=== PATIENT | female | born 2000 | race Caucasian/White ===

== ENCOUNTER → 2022-05-22 | Outpatient (CLI) | payer SELFPAY | END | disposition home or self-care (01) | LOC: LABWHC1 10:31 | PROVIDERS: ATTEND Obstetrics & Gynecology | DX: Z36.9 Encounter for antenatal screening, unspecified (principal) | CPT/HCPCS: 36415; 82950 ==

== ENCOUNTER 2022-07-07 09:33 | Inpatient (IN) | payer BC ==
[2022-07-07] MEDS ORDERED: LACTATED RINGERS 1,000 ML IV ONE (10:45)
[2022-07-07 10:49] LABS: Glucose,Whole Blood 84 mg/dL (70-110)
[2022-07-07 10:53] LABS: Appearance,Urine Cloudy (Clear); Bacteria,Urine Rare /hpf; Bilirubin,Urine Negative (Negative); Blood,Urine Negative (Negative); Color,Urine Yellow; Glucose,Urine (UA) Negative (Negative); Ketones,Urine 1+ (Negative); Leukocyte Esterase,Urine Small (Negative); Mucus,Urine Many /hpf; Nitrite,Urine Negative (Negative); PH, Urine 6.5 (5.0-8.0); Protein,Urine 2+ (Negative); Specific Gravity,Urine 1.022 (1.001-1.035); Squamous Epithelial Cell,Urine 20 /hpf (0-4); Urobilinogen,Urine <2.0 mg/dL (<2.0); WBC,Urine 7 /hpf (0-5)
[2022-07-07 10:56] LABS: Creatinine,Urine Random 164.9 mg/dL
[2022-07-07 11:03] LABS: Basophils % (A) 0 %; Eosinophils % (A) 0 %; HGB 12.5 gm/dL (11.4-16.0); Lymphocytes # (A) 1.3 k/uL (1.0-4.8); Lymphocytes % (A) 12 %; MCH 30.2 pg (25.0-35.0); MCHC 33.7 g/dL (31.0-37.0); MCV 89.7 fL (80.0-100.0); Mean Platelet Volume 8.7; Monocytes # (A) 0.4 k/uL (0-1.0); Monocytes % (A) 4 %; Neutrophils # (A) 8.9 k/uL (1.3-7.7); Neutrophils % (A) 82 %; Platelet Count 226 k/uL (150-450); RBC 4.12 m/uL (3.80-5.40); RDW 13.2 % (11.5-15.5); WBC 10.8 k/uL (3.8-10.6)
[2022-07-07 11:15] LABS: ALT 13 U/L (4-34); AST 16 U/L (14-36); African American GFR (CKD) >90 (>60 ml/min/1.73 sqM); Albumin 3.3 g/dL (3.5-5.0); Alkaline Phosphatase 164 U/L (38-126); Anion Gap 6 mmol/L; Blood Urea Nitrogen 7 mg/dL (7-17); Calcium 8.4 mg/dL (8.4-10.2); Carbon Dioxide 22 mmol/L (22-30); Chloride 104 mmol/L (98-107); Glucose 79 mg/dL (74-99); LDH 393 U/L (313-618); Non-African American GFR(CKD) >90 (>60 ml/min/1.73 sqM); Potassium 4.4 mmol/L (3.5-5.1); Sodium 132 mmol/L (137-145); Total Bilirubin 0.3 mg/dL (0.2-1.3); Total Protein 6.2 g/dL (6.3-8.2); Uric Acid 4.9 mg/dL (3.7-7.4)
[2022-07-07 11:18] LABS: Amphetamine Screen,Urine Not Detected (NotDetected); Barbiturate Screen,Urine Not Detected (NotDetected); Benzodiazepines Screen,Urine Not Detected (NotDetected); Cocaine Screen,Urine Not Detected (NotDetected); Methadone Screen, Urine Not Detected (NotDetected); Opiate Screen,Urine Not Detected (NotDetected); Oxycodone Screen, Urine Not Detected (NotDetected); Phencyclidine Screen,Urine Not Detected (NotDetected); Tricyclic Antidepressant,Urine Not Detected (NotDetected); Urn Cannabinoid Scrn Detected (NotDetected)
[2022-07-07] MEDS ORDERED: MAGNESIUM SULFATE-WATER PMX 4 GM in WATER FOR INJECTION 1 100ML.BAG IVPB ONE (13:01)
[2022-07-07] MEDS ORDERED: hydrALAZINE HCL 20 MG/ML 1 ML VIAL IVP PRN (13:01)
[2022-07-07] MEDS ORDERED: CALCIUM GLUCONATE 1 GM/10 ML VIAL IV PRN (13:01)
[2022-07-07] MEDS ORDERED: LABETALOL 5 MG/ML VIAL MDV IVP PRN ×3 (13:01)
[2022-07-07] MEDS ORDERED: TERBUTALINE 1 MG/ML VIAL SQ PRN (13:03)
[2022-07-07] MEDS ORDERED: OXYTOCIN 10 UNIT/ML 1 ML VIAL IM PRN (13:03)
[2022-07-07] MEDS ORDERED: TRANEXAMIC ACID IN NACL,ISO-OS 1,000 MG in EMPTY BAG 1 BAG IV PRN (13:03)
[2022-07-07] MEDS ORDERED: LIDOCAINE 0.5% (PF) 5 MG/ML (50 ML SDV) SQ PRN (13:03)
[2022-07-07] MEDS ORDERED: METHYLERGONOVINE 0.2 MG/ML 1 ML AMP IM PRN (13:03)
[2022-07-07] MEDS ORDERED: CARBOPROST TROMETHAMINE 250 MCG/ML 1 ML AMP IM PRN (13:03)
[2022-07-07] MEDS ORDERED: miSOPROStoL 200 MCG TAB PO PRN (13:03)
[2022-07-07] MEDS: LACTATED RINGERS 1,000 ML IV SCH ×2 (13:15→20:31)
[2022-07-07] MEDS ORDERED: OXYTOCIN 30 UNITS/500 ML NS 30 UNIT in SALINE 1 500ML.BAG IV SCH (13:15)
[2022-07-07] MEDS ORDERED: DINOPROSTONE 10 MG INSERT.ER VAGINAL ONE (13:30)
--- NOTE | 2022-07-07 13:30 | P.HPOB ---
History of Present Illness H&P Date: 07/07/22 Chief Complaint: Possible maternal seizure This is a 22-year-old 1 para 0 with an estimated due date of 07/08/2022 based on LMP consistent with first trimester ultrasound. He him pronouns, preferred name Sammy, presents to labor and delivery after his partner noted a possible seizure. His partner states the patient "tensed up" and convulsive at the edge of the bed for approximately 45 seconds. This again occurred for an additional 30 seconds several minutes later. The patient then was "out of it" but was able to ambulate without difficulty to the car and they came to the hospital. The patient has a history of a seizure in the first trimester of that was thought to be due to severe dehydration and electrolyte abnormalities. The patient has not had any further seizure activity was, elevated blood pressures or signs or symptoms of preeclampsia throughout the course. Upon initial presentation the patient was noted to be possibly mildly post icteric with a blood pressure of 140s over 80s. Subsequent blood pressure 1 teens over this. Shows 2+ protein however protein to creatinine ratio is calculated low at 0.03. The remainder of labs are normal including glucose. Specifically normal platelets, AST, ALT, uric acid. Patient is admitted to labor and delivery for further evaluation and observation. With transferred to the labor room he became nauseated and diaphoretic. Blood pressure was 177/90. Therefore magnesium sulfate seizure prophylaxis was initiated. Repeat blood pressures 144/80 and 139/79. The patient appears alert and oriented. Able to answer questions and provide history. He reports mild headache this morning in the car on the way to the hospital however denies any significant history of headaches, visual changes, abdominal pain, vaginal bleeding or contractions. He has felt good movement. The patient does admit to marijuana use last night however no other illicit drug use or known exposures. laboratory data: Blood type AB+, rubella immune, VDRL nonreactive, hepatitis B surface antigen negative, HIV negative, gonorrhea and clinic cultures negative, group B strep negative. Review of Systems All systems: negative Past Medical History History of Any Multi-Drug Resistant Organisms: None Reported Smoking Status: Vaper Medications and Allergies Home Medications Medication Instructions Recorded Confirmed Type Vit No.179/Iron/Folic 1 each PO DAILY 07/07/22 07/07/22 History [ Tablet] Allergies Allergy/AdvReac Type Severity Reaction Status Date / Time nickel Allergy Rash/Hives Verified 07/07/22 09:56 Exam Intake and Output 07/06/22 07/07/22 07/07/22 22:59 06:59 14:59 Other: Weight 94.347 kg This is an alert and oriented individual who is visibly gravid. HEENT exam is unremarkable. Breathing is unlabored and the heart is of regular rate and rhythm. The abdomen is gravid, soft with no right upper quadrant pain and nontender. Negative for bilateral lower extremity edema. Deep tendon reflexes 1-2+ with no clonus. On pelvic examination the cervix is 1 cm dilated 30% effaced and vertex in the -3 station. heart tones are category 2 by external monitoring. No repetitive decelerations however minimal variability noted. No contractions. Results Result Diagrams: 07/07/22 10:45 07/07/22 10:45 Abnormal Lab Results - Last 24 Hours (Table) 07/07/22 07/07/22 07/07/22 Range/Units 10:30 10:30 10:45 WBC (3.8-10.6) k/uL Neutrophils # (1.3-7.7) k/uL Sodium 132 L (137-145) mmol/L Creatinine 0.46 L (0.52-1.04) mg/dL Alkaline Phosphatase 164 H (38-126) U/L Total Protein 6.2 L (6.3-8.2) g/dL Albumin 3.3 L (3.5-5.0) g/dL Urine Appearance Cloudy H (Clear) Urine Protein 2+ H (Negative) Urine Ketones 1+ H (Negative) Ur Leukocyte Esterase Small H (Negative) Urine WBC 7 H (0-5) /hpf Ur Squamous Epith Cells 20 H (0-4) /hpf Urine Bacteria Rare H (None) /hpf Urine Mucus Many H (None) /hpf U Marijuana (THC) Screen Detected H (NotDetected) 07/07/22 Range/Units 10:45 WBC 10.8 H (3.8-10.6) k/uL Neutrophils # 8.9 H (1.3-7.7) k/uL Sodium (137-145) mmol/L Creatinine (0.52-1.04) mg/dL Alkaline Phosphatase (38-126) U/L Total Protein (6.3-8.2) g/dL Albumin (3.5-5.0) g/dL Urine Appearance (Clear) Urine Protein (Negative) Urine Ketones (Negative) Ur Leukocyte Esterase (Negative) Urine WBC (0-5) /hpf Ur Squamous Epith Cells (0-4) /hpf Urine Bacteria (None) /hpf Urine Mucus (None) /hpf U Marijuana (THC) Screen (NotDetected) Assessment and Plan (1) Seizure Narrative/Plan: Unwitnessed. The patient had an opening blood pressure of 140s over 80s and a single elevated blood pressure of 170 over 90s. Preeclamptic labs are within n ormal limits but I believe this should be treated as an eclamptic seizure. Magnesium sulfate for gram bolus is given. Labetalol IV as needed for hypertension. Induction of labor will be initiated. The patient will require cervical ripening. heart tones are category 2 currently. The patient and his partner have been counseled regarding the possibility of this being eclampsia and the recommendation for induction of labor and delivery. Cervidil cervical ripening will be initiated with close the maternal and monitoring. Current Visit: Yes Status: Acute Code(s): R56.9 - UNSPECIFIED CONVULSIONS SNOMED Code(s): 90442239 (2) 39 weeks gestation of Current Visit: Yes Status: Acute Code(s): Z3A.39 - 39 WEEKS GESTATION OF SNOMED Code(s): 78203693 Time with Patient: Greater than 30
[2022-07-07] MEDS: MAGNESIUM SULFATE-WATER PMX 20 GM in WATER FOR INJECTION 1 500ML.BAG IV SCH (13:38)
[2022-07-07 14:50] LABS: INR 0.9 (<1.2); Partial Thromboplastin Time 23.3 sec (22.0-30.0); Prothrombin Time 9.5 sec (9.0-12.0)
--- NOTE | 2022-07-07 15:33 | P.PN ---
Progress Note - Text Progress Note Date: 07/07/22 Patient currently stable with magnesium infusing at 2 g per hour. Blood pressures 130s over 70s to 80s. Bedside ultrasound confirms vertex presentation. Cervidil is placed in the posterior fourchette. The cervix is 1.5 cm, 50% and vertex is -3 station. heart tones currently category 1 with very irregular contractions.
--- NOTE | 2022-07-07 21:02 | P.PN ---
Progress Note - Text Progress Note Date: 07/07/22 Patient resting comfortably in bed. Blood pressures reviewed and stable with no significant hypertensive episodes. Magnesium sulfate continues at 2 g/h. Irregular contractions with Cervidil in place, due to be removed at 3 AM unless active labor sooner. status currently category 1. Continue current management.
[2022-07-08] MEDS: MAGNESIUM SULFATE-WATER PMX 20 GM in WATER FOR INJECTION 1 500ML.BAG IV SCH ×2 (00:54→15:10)
[2022-07-08] MEDS: BUTORPHANOL 1 MG/ML 1 ML VIAL IV PRN ×2 (02:47→04:52)
[2022-07-08] MEDS ORDERED: SODIUM CHLORIDE 0.9% 100 ML BAG ONE (06:05)
[2022-07-08] MEDS ORDERED: fentaNYL (PF) 50 MCG/ML 5 ML AMP ONE (06:05)
[2022-07-08] MEDS ORDERED: ROPIVACAINE 5 MG/ML 20 ML AMPULE ONE (06:05)
[2022-07-08] MEDS ORDERED: ROPIVACAINE 100 MG, fentaNYL (PF). 200 MCG in SODIUM CHLORIDE 0.9% 76 ML EPIDURAL ONE (07:33)
[2022-07-08] MEDS: LACTATED RINGERS 1,000 ML IV SCH (07:42)
--- NOTE | 2022-07-08 09:14 | P.PN ---
Progress Note - Text Progress Note Date: 07/08/22 Cervidil was removed at 3 AM, patient was a proximal a 3 cm dilated per RN report at that time. Patient received Stadol 2 and this morning received an epidural anesthetic. Pitocin was initiated and is currently at 6 mU/m. Magnesium sulfate at 2 mU/m with IV fluids at 75 ML's. The patient denies headaches, visual changes on and is comfortable with the epidural. He experienced some mild nausea following the epidural. Blood pressures have been stable throughout the night with no hypertensive readings. Spontaneous rupture of membranes occurred at approximately 8 AM. Current exam: 5 cm, 70% effaced, -3 station with copious clear fluid. There is noted to be bloody urine in the catheter. heart tones are currently category 2 with some variability and early appearing heart rate decelerations. Contractions are every 3-5 minutes. Deep tendon reflexes 2+ bilaterally. Lungs are clear. Plan is to continue Pitocin per protocol, anticipate normal spontaneous vaginal delivery.
[2022-07-08] MEDS ORDERED: CITRIC ACID-SODIUM CITRATE 15 ML CUP PO ONE (11:57)
[2022-07-08] MEDS ORDERED: KETOROLAC 30 MG/ML 1 ML VIAL ONE (12:15)
[2022-07-08] MEDS ORDERED: DEXAMETHASONE SOD PHOS (MDV) 100 MG/10 ML VIAL ONE (12:15)
[2022-07-08] MEDS ORDERED: fentaNYL (PF) 50 MCG/ML 2 ML AMP ONE (12:15)
[2022-07-08] MEDS ORDERED: ONDANSETRON 4 MG/2 ML VIAL ONE (12:15)
[2022-07-08] MEDS ORDERED: MORPHINE SULFATE (PF) 0.3 MG/0.3 ML SYR ONE (12:15)
[2022-07-08] MEDS ORDERED: OXYTOCIN 30 UNITS/500 ML NS BAG IV ONE (12:15)
--- NOTE | 2022-07-08 13:10 | P.OP ---
Date of Procedure: 07/08/22 Preoperative Diagnosis: Intrauterine at 40-0/7 weeks Maternal seizure, probable eclampsia Nonreassuring heart tones Bloody amniotic fluid Postoperative Diagnosis: Same Procedure(s) Performed: Primary low transverse section Anesthesia: epidural Surgeon: Suma Cheung Respiratory Assistant #1: Mandie Salcido Estimated Blood Loss (ml): 680 IV fluids (ml): 1,000 Urine output (ml): 200 Pathology: other (Placenta) Condition: stable Disposition: floor Indications for Procedure: This is a 22-year-old 1 para 0 woman who presented at 39-6/7 weeks' gestation with possible seizure at home, unwitnessed. Presented diagnosis of preeclampsia was made and magnesium sulfate was initiated following admission. Her laboratory data was all within normal limits however she did have a single blood pressure of 177/90. Remainder of her blood pressures have been stable and she did not require antihypertensives. When she was stabilized cervical ripening was initiated with Cervidil. This was placed at approximately 3 PM on 06/06/[address] for 12 hours. When the Cervidil was removed the cervix was 3 cm dilated and Pitocin was initiated. Magnesium sulfate at 2 g per hour was infusing. Spontaneous rupture of membranes occurred at approximately 8 AM. The patient had received an epidural anesthetic. heart tones were category 1 to category 2 throughout the first stage of labor. Patient did progress to approximately 6 cm dilated however had some decreased variability with some subtle and repetitive late variable decelerations. At this time the amniotic fluid became grossly bloody. Concern was for possible evolving abruption and the patient and her partner were counseled extensively regarding findings. I did recommend primary low transverse section. Risks were reviewed including bleeding, transfusion, infection, maternal or injury. With shared decision-making decision was made to proceed to C- section and consent was obtained. Operative Findings: Female in the vertex presentation with Apgars of 9 at 1 minute and 9 at 5 minutes weighing 6 pounds, 5 ounces 2860 g. [place] tinged amniotic fluid was noted. Of note the urine in the catheter was grossly bloody prior to the section as noted previously. Description of Procedure: After consent was obtained the patient was transported to the operating room where the epidural anesthetic was dosed appropriately. Patient was positioned, prepped and draped in the dorsal supine position with a leftward tilt. Appropr iate timeout procedure was undertaken. Anesthetic was confirmed adequate a low transverse skin incision was made. This was carried down to the underlying fascia sharply. Fascia was incised in the midline and extended bilaterally with the Dockery scissors. The superior aspect of the fascial incision was elevated and the underlying rectus muscles dissected off sharply. Inferior aspect of the fascial incision was elevated and the underlying rectus muscles dissected off sharply. The rectus muscles were in the midline and the peritoneum was tented up with hemostats and entered sharply. The peritoneal incision was extended inferiorly and superiorly with good visualization the bladder. Bladder blade was placed and the vesicouterine peritoneum was identified tented up and entered sharply. Of note the entire anterior low segment of the uterus appeared hypervascular. A low transverse uterine incision was made and was carried down to the underlying amniotic membrane sharply. Membranes were ruptured and pink tinge fluid was noted. The fluid was not grossly bloody at this time. The uterine incision was extended bilaterally bluntly. The 's head was then delivered out of the incision without difficulty. The nose and mouth were bulb suctioned. The rest the was delivered onto the field without difficulty and the cord was clamped and cut. Infant was taken to the warmer. The placenta was then manually removed and the uterus was exteriorized. The uterus was cleared of all clot and debris. The uterine incision was delineated with Clements's and closed in a running locked fashion with 0 Vicryl suture. A second imbricating layer of the same suture was placed. Additional [id number] sutures on the left angle were placed and the uterus was returne d to the abdomen. The gutters were cleared of all clot and debris and the uterine incision was reinspected. There was minimal amount of oozing along the anterior left edge of the incision and this was observed and no active bleeding was noted however Surgicel powder was placed over the entire incision. Hemostasis was noted. The bladder was inspected and no gross abnormalities were appreciated. The rectus muscles peritoneal edges and fascial edges were all inspected and Bovie electrocautery was utilized were necessary for hemostasis. The fascia was then closed in a running fashion with 0 Vicryl suture. The subcuticular tissue was irrigated and reapproximated with 3-0 chromic. The skin was then closed with 4-0 Vicryl suture in a subcutaneous fashion. All counts reported to me as correct by the operating room staff. The patient received Pitocin following delivery of the placenta and antibiotics preoperatively. Patient was transported to recovery area in good condition.
[2022-07-08] MEDS ORDERED: diphenhydrAMINE 25 MG CAP PO PRN (13:11)
[2022-07-08] MEDS ORDERED: diphenhydrAMINE 50 MG CAP PO PRN (13:11)
[2022-07-08] MEDS ORDERED: diphenhydrAMINE 50 MG/ML 1 ML VIAL IVP PRN ×2 (13:11)
[2022-07-08] MEDS ORDERED: NALOXONE 0.4 MG/ML 1 ML VIAL IV PRN ×2 (13:11→15:52)
[2022-07-08] MEDS ORDERED: METOCLOPRAMIDE 5 MG/ML 2 ML VIAL IVP PRN (13:11)
[2022-07-08] MEDS ORDERED: ZOLPIDEM 5 MG TAB PO PRN (13:11)
[2022-07-08] MEDS ORDERED: HYDROmorphone 1 MG/ML 1 ML SYRINGE IVP PRN (13:11)
[2022-07-08] MEDS ORDERED: HYDROmorphone 2 MG TAB PO PRN (13:11)
[2022-07-08] MEDS ORDERED: ONDANSETRON 4 MG/2 ML VIAL IVP PRN (13:11)
[2022-07-08] MEDS ORDERED: OXYTOCIN 30 UNITS/500 ML NS 30 UNIT in SALINE 1 500ML.BAG IV SCH (13:15)
[2022-07-08] MEDS: ACETAMINOPHEN IV (For NPO) 1,000 MG in EMPTY BAG 1 BAG IVPB SCH ×2 (15:08→22:22)
[2022-07-08] MEDS ORDERED: NALBUPHINE 10 MG/ML (1 ML AMP) IV PRN (15:52)
[2022-07-08] MEDS ORDERED: MORPHINE SULFATE 2 MG/ML SYRINGE IVP PRN (15:52)
[2022-07-08 16:22] LABS: Basophils # (A) 0.1 k/uL (0-0.2); Basophils % (A) 0 %; Eosinophils % (A) 0 %; HCT 33.4 % (34.0-46.0); HGB 11.8 gm/dL (11.4-16.0); Lymphocytes # (A) 1.1 k/uL (1.0-4.8); Lymphocytes % (A) 7 %; MCH 31.9 pg (25.0-35.0); MCHC 35.4 g/dL (31.0-37.0); MCV 90.1 fL (80.0-100.0); Mean Platelet Volume 9.2; Monocytes # (A) 0.7 k/uL (0-1.0); Monocytes % (A) 4 %; Neutrophils # (A) 14.3 k/uL (1.3-7.7); Neutrophils % (A) 88 %; Platelet Count 214 k/uL (150-450); RBC 3.71 m/uL (3.80-5.40); RDW 12.8 % (11.5-15.5); WBC 16.3 k/uL (3.8-10.6)
[2022-07-08] MEDS: KETOROLAC 15 MG/ML 1 ML VIAL IVP PRN (20:08)
[2022-07-08] MEDS: SENNOSIDES-DOCUSATE SODIUM 1 EACH TAB PO SCH (21:17)
[2022-07-08] MEDS: ACETAMINOPHEN TAB 500 MG TAB PO PRN (22:06)
[2022-07-08] MEDS: IBUPROFEN IV 800 MG in SODIUM CHLORIDE 0.9% 250 ML IV SCH (22:23)
[2022-07-09] MEDS: KETOROLAC 15 MG/ML 1 ML VIAL IVP PRN ×3 (01:57→13:56)
[2022-07-09] MEDS: LACTATED RINGERS 1,000 ML IV SCH ×7 (04:02→20:41)
[2022-07-09] MEDS: ACETAMINOPHEN TAB 500 MG TAB PO PRN ×4 (05:09→23:20)
[2022-07-09 06:01] LABS: Basophils % (A) 0 %; Eosinophils # (A) 0.1 k/uL (0-0.7); Eosinophils % (A) 1 %; HCT 27.3 % (34.0-46.0); Lymphocytes # (A) 1.5 k/uL (1.0-4.8); Lymphocytes % (A) 13 %; MCH 30.8 pg (25.0-35.0); MCHC 34.5 g/dL (31.0-37.0); MCV 89.2 fL (80.0-100.0); Mean Platelet Volume 8.6; Monocytes # (A) 0.9 k/uL (0-1.0); Monocytes % (A) 8 %; Neutrophils # (A) 8.7 k/uL (1.3-7.7); Neutrophils % (A) 76 %; Platelet Count 211 k/uL (150-450); RBC 3.06 m/uL (3.80-5.40); RDW 12.9 % (11.5-15.5); WBC 11.5 k/uL (3.8-10.6)
[2022-07-09 06:13] LABS: HGB 9.4 gm/dL (11.4-16.0)
[2022-07-09] MEDS: SENNOSIDES-DOCUSATE SODIUM 1 EACH TAB PO SCH ×2 (08:07→21:09)
--- NOTE | 2022-07-09 08:42 | P.PN ---
Progress Note - Text Progress Note Date: 07/09/22 Postop day 1 from under spinal anesthesia with intrathecal morphine given for postop pain management. Patient is doing well. Pain is well controlled. On visual analog scale 2/10 Mild itching present No nausea or vomiting reported. No Headache or weakness and numbness in the legs. No complications from spinal anesthesia.
--- NOTE | 2022-07-09 09:24 | P.PNOBGPC ---
Subjective - Subjective Principal diagnosis: Postop day 1 Interval history: Patient reports feeling very well overnight. No headaches or visual changes. No seizure-like activity. Pain is well-controlled. Tolerating a clear diet. Magnesium sulfate at 1 g per hour with stable blood pressures and good urine output. No further blood in the urine. Patient reports: Reports appetite normal, Reports pain well controlled Galliano: doing well, bottle feeding Objective - Vital Signs Latest vital signs: Vital Signs Temp Pulse Resp BP Pulse Ox 07/09/22 08:59 135/78 07/09/22 08:29 76 136/69 07/09/22 07:44 98.3 F 76 17 130/59 97 07/09/22 06:00 16 07/09/22 05:00 98.9 F 78 16 130/61 98 07/09/22 04:00 71 16 116/57 98 07/09/22 02:00 69 16 127/58 07/09/22 01:00 76 16 126/59 07/09/22 00:00 98.9 F 83 16 131/62 98 07/08/22 22:00 104 H 16 153/81 07/08/22 21:00 85 16 127/61 07/08/22 20:00 98.3 F 81 16 119/73 07/08/22 18:52 17 07/08/22 16:52 17 99 07/08/22 16:00 74 17 136/68 99 07/08/22 15:52 17 99 07/08/22 15:05 81 17 145/76 99 07/08/22 14:35 79 17 141/75 100 07/08/22 14:05 91 17 145/85 100 07/08/22 13:50 76 17 139/72 100 07/08/22 13:35 85 17 136/73 100 07/08/22 13:20 85 17 136/70 100 07/08/22 13:05 78 17 147/73 100 Intake and Output 07/08/22 07/09/22 07/09/22 22:59 06:59 14:59 Intake Total 500 1000 Output Total 1061 700 100 Balance -561 300 -100 Intake: IV 500 1000 Output: Urine 375 700 100 Output, Quantitative 686 Blood Loss Other: Voiding Method Indwelling Catheter - Exam Lungs: bilateral: normal Extremities: Present: normal. Absent: tenderness, edema Abdomen: Present: normal appearance, soft. Absent: distention, tenderness Incision: Present: normal, dry, intact. Absent: erythematous Uterus: Present: normal, firm. Absent: tenderness - Labs Labs: Abnormal Lab Results - Last 24 Hours (Table) 07/08/22 07/09/22 Range/Units 14:48 05:13 WBC 16.3 H 11.5 H (3.8-10.6) k/uL RBC 3.71 L 3.06 L (3.80-5.40) m/uL Hgb 9.4 L D (11.4-16.0) gm/dL Hct 33.4 L 27.3 L (34.0-46.0) % Neutrophils # 14.3 H 8.7 H (1.3-7.7) k/uL Assessment and Plan (1) Seizure Current Visit: Yes Status: Acute Code(s): R56.9 - UNSPECIFIED CONVULSIONS SNOMED Code(s): 37965601 (2) 39 weeks gestation of Current Visit: Yes Status: Acute Code(s): Z3A.39 - 39 WEEKS GESTATION OF SNOMED Code(s): 27826552 (3) Severe preeclampsia Current Visit: Yes Status: Acute Code(s): O14.10 - SEVERE PRE-ECLAMPSIA, UNSPECIFIED TRIMESTER SNOMED Code(s): 59752933 (4) Bloodstained amniotic fluid Current Visit: Yes Status: Acute Code(s): O41.8X90 - OTH DISRD OF AMNIOTIC FLUID AND MEMBRNS, UNSP TRI, UNSP SNOMED Code(s): 708758758 (5) Non-reassuring electronic monitoring tracing Current Visit: Yes Status: Acute Code(s): O36.8390 - MATERN CARE FOR ABNLT FETL HRT RATE OR RHYM, UNSP TRI, UNSP SNOMED Code(s): 736472223 Plan: Sent day 1 status post primary low transverse section for nonreassuring heart tones with bloody amniotic fluid intrapartum. Blood pressures have remained stable throughout the night and the patient is completely asymptomatic. We'll discontinue magnesium sulfate, remove Prabhakar catheter and advance diet. Urine in the Prabhakar catheter is now completely clear.
[2022-07-09] MEDS: IBUPROFEN 600 MG TAB PO PRN (20:17)
[2022-07-09] MEDS: IBUPROFEN IV 800 MG in SODIUM CHLORIDE 0.9% 250 ML IV SCH ×2 (20:38→20:39)
[2022-07-09] MEDS: MAGNESIUM SULFATE-WATER PMX 20 GM in WATER FOR INJECTION 1 500ML.BAG IV SCH (20:39)
[2022-07-10] MEDS: IBUPROFEN 600 MG TAB PO PRN ×2 (03:40→09:41)
[2022-07-10] MEDS: ACETAMINOPHEN TAB 500 MG TAB PO PRN (06:40)
--- NOTE | 2022-07-10 07:18 | P.PN ---
Progress Note - Text Progress Note Date: 07/08/22 Called for an emergency at 1205 for the possibility of abruption of placenta. Rushed in to the OB OR and did case myself as provider of anesthesia as deemed emergency and No SPECIMEN TRANSPORTER available.
--- NOTE | 2022-07-10 09:02 | P.DS ---
Providers Date of admission: 07/07/22 12:29 Expected date of discharge: 07/10/22 Attending physician: Bisi Barrera Primary care physician: Stated None Hospital Course: This is a 22-year-old 1 para 0 EDC 07/08/2022 presented at 40 weeks gestation with a history of having had a seizure at home, witnessed by the partner. Blood pressure on admission 140/87. Labs were normal however the patient did appear postictal and magnesium was started. Cervidil was also given. Please see dictated history and physical for details. Ultimately the patient ended up with a primary low transverse section for suspected abruption. She gave to a liveborn female infant with scores of 9 and 9 at one and 5 minutes respectively, weighing 2860 g or 6 lbs. 5 oz. Magnesium was continued for 24 hours and then discontinued. Blood pressures have been very stable and normal since that time. This morning the patient and the are both appearing well. Blood pressures are 120s to 130s over 70s to 80s. Incision is clean and dry, intact, Steri-Strips applied. Patient is voiding, ambulating passing flatus without difficulty. Breast-feeding is going well. I have written a prescription for a double electric breast pump per her request. Patient will be discharged home later today. I have instructed follow-up with me in the office in 2 weeks. Patient is to call with any foul smelling or copious lochia, incisional problems, issues breast-feeding, headache visual changes or right upper quadrant pain, or any symptomatology. Advil Motrin or Aleve will be used [id number] as needed for pain. I have recommended that the patient call and make an appointment with her neurologist for follow-up within the next 2 weeks. Assessment: Doing well post operative day #2 Patient Condition at Discharge: Good Plan - Discharge Summary Discharge Rx Participant: No New Discharge Prescriptions: No Action Vit No.179/Iron/Folic [ Tablet] 1 each PO DAILY Discharge Medication List Vit No.179/Iron/Folic [ Tablet] 1 each PO DAILY 07/07/22 [H istory] Discharge Disposition: HOME SELF-CARE
[2022-07-10] MEDS: SENNOSIDES-DOCUSATE SODIUM 1 EACH TAB PO SCH (09:41)
[2022-07-10 13:21] VITALS: BP 134/80; PULSE 70; TEMP 98
[2022-07-10 13:53] VITALS: RESP 16
--- NOTE | 2022-07-25 12:02 | CDI ---
Documentation Clarification Form Date: 07/25/2022 11:20:52 AM From: Julianna Barbour Admit Date: 07/07/2022 12:29:00 PM Patient Name: Kristine Good Visit Number: [id number] Discharge Date: 07/10/2022 1:45:00 PM ATTENTION: The Clinical Documentation Specialists (CDI) and [facility] Coding Staff appreciate your assistance in clarifying documentation. Please respond to the clarification below the line at the bottom and electronically sign. The CDI & [facility] Coding staff will review the response and follow-up if needed. Please note: Queries are made part of the Legal Health Record. If you have any questions, please contact the author of this message via ITS. Dr. Suma Cheung Conflicting documentation has been found in the medical record. As attending physician, please provide clarification. H&P 07-07-22: diagnosed with seizure pre-eclamptic labs are within normal limits, but I believe this should be treated as an eclamptic seizure Procedure note 07-08-22 states: Maternal seizure probable eclampsia Progress note 07-09-22 states: Seizure and severe preeclampsia History/Risk Factors: patient presented with possible maternal seizure, 1 para 0 presented after partner noted possible seizure. Has a history of a seizure in the first trimester thought to be due to severe dehydration and electrolyte abnormalities. Clinical Indicators: Per H&P possible seizure, mildly post icteric with blood pressure 140/80. Shows 2+ protein, protein to creatinine ratio is calculated at 0.03. Other labs are normal including glucose. Patient became nauseated, diaphoretic, BP was 177/90, mild headache, + THC use/vapes Treatment: admitted to L&D, magnesium sulfate seizure prophylaxis initiated, Labetolol IV as needed for HTN, IOL, cervical ripening, Pitocin, Cytotec Please clarify which diagnosis is most appropriate: [ ] Severe pre-eclampsia, eclampsia RULED OUT [ XX ] Severe pre-eclampsia that progressed to eclampsia [ ] Other (please specify) [ ] Unable to determine MTDD
--- NOTE | 2022-07-25 12:04 | CDI ---
Documentation Clarification Form Date: 07/25/2022 11:49:57 AM From: Julianna Barbour Admit Date: 07/07/2022 12:29:00 PM Patient Name: Kristine Good Visit Number: [id number] Discharge Date: 07/10/2022 1:45:00 PM ATTENTION: The Clinical Documentation Specialists (CDI) and [facility] Coding Staff appreciate your assistance in clarifying documentation. Please respond to the clarification below the line at the bottom and electronically sign. The CDI & [facility] Coding staff will review the response and follow-up if needed. Please note: Queries are made part of the Legal Health Record. If you have any questions, please contact the author of this message via ITS. Dr. Suma Cheung There is documentation of possible evolving abruption in the procedure note and progress note 07-08-22. Additional clarification is requested. History/Risk Factors: patient is a 22 year old, 1 para 0 who is 39 weeks gestation. Presented with a possible seizure at home. Diagnosed with possible eclampsia/ severe preeclampsia. Delivered a single live born infant via LTCS. Clinical Indicators: IOL began, received Cervidil- after removal patient was at 3CM, Pitocin was initiated, magnesium sulfate was infusing, SROM occurred, epidural was placed, patient progressed to 6CM, with some late variable decelerations. Then the amniotic fluid became grossly bloody, concern for possible evolving abruption. Patient was taken for a C/S. HGB: 07/07- 12.5 07/09- 9.4 Treatment: Cervidil, Pitocin, magnesium sulfate, SROM, epidural, had a LTCS Can you please clarify if the patient had a placental abruption? [ XX ] Placental abruption confirmed/ still suspected [ ] Placental abruption Ruled Out [ ] Other, please specify [ ] Unable to determine MTDD
== END 2022-07-10 13:45 | disposition home or self-care (01) | DRG 786 ==
LOC: FBPOP 09:33 → 4FBP 12:29
PROVIDERS: ADMIT Obstetrics & Gynecology; ATTEND Obstetrics & Gynecology
PROC: 3E0P7VZ Introduction of Hormone into Female Reproductive, Via Natural or Artificial Opening (ICD-10-PCS; principal; 2022-07-07)
PROC: 3E033VJ Introduction of Other Hormone into Peripheral Vein, Percutaneous Approach (ICD-10-PCS; principal; 2022-07-07)
PROC: 3E0DXGC Introduction of Other Therapeutic Substance into Mouth and Pharynx, External Approach (ICD-10-PCS; principal; 2022-07-07)
PROC: 10D00Z1 Extraction of Products of Conception, Low, Open Approach (ICD-10-PCS; 2022-07-08)
DX: O15.1 Eclampsia complicating labor (principal); O45.93 Premature separation of placenta, unspecified, third trimester; O99.324 Drug use complicating childbirth; O14.14 Severe pre-eclampsia complicating childbirth; O99.334 Smoking (tobacco) complicating childbirth; N85.8 Other specified noninflammatory disorders of uterus; F17.290 Nicotine dependence, other tobacco product, uncomplicated; F12.90 Cannabis use, unspecified, uncomplicated; O76 Abnormality in fetal heart rate and rhythm complicating labor and delivery; Z3A.39 39 weeks gestation of pregnancy; Z37.0 Single live birth
CPT/HCPCS: 36415; 59025; 80053; 80306; 81001; 82570; 83615; 84156; 84550; 85025; 85610; 85730; 86850; 86900; 86901; 88307; 96360; 99215

== ENCOUNTER 2023-01-02 15:21 | Observation (INO) | payer BC ==
[2023-01-02] MEDS ORDERED: SODIUM CHLORIDE 0.9% 1,000 ML IV STA (16:14)
[2023-01-02 17:12] LABS: Basophils # (A) 0.1 k/uL (0-0.2); Basophils % (A) 1 %; Eosinophils # (A) 0.1 k/uL (0-0.7); Eosinophils % (A) 1 %; HCT 41.4 % (34.0-46.0); HGB 13.8 gm/dL (11.4-16.0); Lymphocytes # (A) 1.3 k/uL (1.0-4.8); Lymphocytes % (A) 13 %; MCH 29.9 pg (25.0-35.0); MCHC 33.5 g/dL (31.0-37.0); MCV 89.2 fL (80.0-100.0); Mean Platelet Volume 8.3; Monocytes # (A) 0.5 k/uL (0-1.0); Monocytes % (A) 5 %; Neutrophils # (A) 8.2 k/uL (1.3-7.7); Neutrophils % (A) 80 %; Platelet Count 234 k/uL (150-450); RBC 4.64 m/uL (3.80-5.40); RDW 13.3 % (11.5-15.5); WBC 10.2 k/uL (3.8-10.6)
--- NOTE | 2023-01-02 17:17 | CT ---
EXAMINATION TYPE: CT brain jose comer DATE OF EXAM: 01/02/2023 COMPARISON: None HISTORY: SEIZURE ACTIVITY, LOC CT DLP: 1417.[address] Brain: Unenhanced CT of the brain was performed. The ventricles, basal cisterns and sulci overlying the cerebral convexities demonstrate a normal appe arance. There is no evidence for intracranial hemorrhage or sulcal effacement. No mass effects are seen. If symptoms persist consider MRI. Osseous calvarium is intact. IMPRESSION: No acute intracranial process CT Cervical Spine: Unenhanced CT of the cervical spine was performed with bone and soft tissue window settings submitted . Coronal and sagittal reconstruction is obtained. There is normal alignment and prevertebral soft tissues. I do not see evidence for fracture or sublu xation. No significant degenerative changes are present. The lung apices are clear. IMPRESSION: No evidence for acute fracture or subluxation of the cervical spine.
[2023-01-02 17:34] LABS: ALT 16 U/L (4-34); AST 20 U/L (14-36); African American GFR (CKD) >90 (>60 ml/min/1.73 sqM); Albumin 4.8 g/dL (3.5-5.0); Alkaline Phosphatase 55 U/L (38-126); Anion Gap 6 mmol/L; Blood Urea Nitrogen 9 mg/dL (7-17); Calcium 9.5 mg/dL (8.4-10.2); Carbon Dioxide 29 mmol/L (22-30); Chloride 99 mmol/L (98-107); Glucose 93 mg/dL (74-99); Magnesium 2.1 mg/dL (1.6-2.3); Non-African American GFR(CKD) >90 (>60 ml/min/1.73 sqM); Potassium 4.4 mmol/L (3.5-5.1); Sodium 134 mmol/L (137-145); Total Bilirubin 0.5 mg/dL (0.2-1.3)
[2023-01-02 18:18] LABS: Appearance,Urine Clear (Clear); Bacteria,Urine Rare /hpf; Bilirubin,Urine Negative (Negative); Blood,Urine Trace (Negative); Color,Urine Colorless; Glucose,Urine (UA) Negative (Negative); Ketones,Urine Negative (Negative); Leukocyte Esterase,Urine Negative (Negative); Nitrite,Urine Negative (Negative); Protein,Urine Negative (Negative); RBC,Urine 1 /hpf (0-5); Specific Gravity,Urine 1.004 (1.001-1.035); Squamous Epithelial Cell,Urine 1 /hpf (0-4); Urobilinogen,Urine <2.0 mg/dL (<2.0); WBC,Urine 1 /hpf (0-5)
[2023-01-02 18:32] LABS: Amphetamine Screen,Urine Not Detected (NotDetected); Barbiturate Screen,Urine Not Detected (NotDetected); Benzodiazepines Screen,Urine Not Detected (NotDetected); Cocaine Screen,Urine Not Detected (NotDetected); Methadone Screen, Urine Not Detected (NotDetected); Opiate Screen,Urine Not Detected (NotDetected); Oxycodone Screen, Urine Not Detected (NotDetected); Phencyclidine Screen,Urine Not Detected (NotDetected); Tricyclic Antidepressant,Urine Not Detected (NotDetected); Urn Cannabinoid Scrn Detected (NotDetected)
[2023-01-02] MEDS ORDERED: levETIRAcetam IV 500 MG/5 ML VIAL IVP STA (19:46)
--- NOTE | 2023-01-02 20:00 | ED ---
Seizure HPI - General Chief Complaint: Seizure Stated Complaint: siezure Time Seen by Provider: 01/02/23 15:40 Source: patient, EMS Mode of arrival: EMS - History of Present Illness Initial Comments: 22-year-old female presents to the emergency department for seizure. Family at bedside states that this is the fourth seizure that the patient has had within the past 14 months. She originally had a seizure when she first found out she was . Was evaluated at [facility] and discharged without any medications. States that she did have an EEG which did not show any seizure- like activity however she was supposed to follow up for an MRI. She called to make an appointment and has an appointment with Dr. Hollingsworth on the of this month. Patient had a seizure today getting out of the bathroom. She fell and hit her head. Seizure lasted for approximately 2 minutes before it stopped. They state that her postictal phase was for another 5 minutes. They did call EMS to transport the patient to the hospital. She does admit there is concern for at this time. She is back to her normal baseline. Admits to mild right-sided paraspinal neck pain. No vision changes. No vomiting. No other alleviating, precipitating or modifying factors - Related Data Home Medications Medication Instructions Recorded Confirmed No Known Home Medications 01/02/23 01/02/23 Allergies Allergy/AdvReac Type Severity Reaction Status Date / Time nickel Allergy Rash/Hives Verified 01/02/23 17:20 Review of Systems ROS Statement: Those systems with pertinent positive or pertinent negative responses have been documented in the HPI. ROS Other: All systems not noted in ROS Statement are negative. Past Medical History Past Medical History: Seizure Disorder History of Any Multi-Drug Resistant Organisms: None Reported Past Surgical History: Section, Tonsillectomy Past Anesthesia/Blood Transfusion Reactions: Unable to Obtain Past Psychological History: Anxiety, Depression Smoking Status: Vaper Past Alcohol Use History: None Reported Past Drug Use History: Marijuana General Exam General appearance: alert, in no apparent distress Head exam: Present: atraumatic, normocephalic, normal inspection Eye exam: Present: normal appearance, PERRL, EOMI. Absent: scleral icterus, conjunctival injection, periorbital swelling ENT exam: Present: mucous membranes moist, other (Bite sahni on the right aspect of the patient's tongue. No active bleeding) Neck exam: Present: normal inspection. Absent: tenderness, meningismus, lymphadenopathy Respiratory exam: Present: normal lung sounds bilaterally. Absent: respiratory distress, wheezes, rales, rhonchi, stridor Cardiovascular Exam: Present: regular rate, normal rhythm, normal heart sounds. Absent: systolic murmur, diastolic murmur, rubs, gallop, clicks GI/Abdominal exam: Present: soft, normal bowel sounds. Absent: distended, tenderness, guarding, rebound, rigid Extremities exam: Present: normal inspection, full ROM, normal capillary refill. Absent: tenderness, pedal edema, joint swelling, calf tenderness Back exam: Present: normal inspection Neurological exam: Present: alert, oriented X3, CN II-XII intact Psychiatric exam: Present: normal affect, normal mood Skin exam: Present: warm, dry, intact, normal color. Absent: rash Course Vital Signs 01/02/23 01/02/23 01/02/23 15:26 15:31 17:00 Temperature 98.2 F 97.9 F 98.1 F Pulse Rate 73 62 60 Respiratory 16 18 18 Rate Blood Pressure 120/71 146/76 132/74 O2 Sat by Pulse 100 98 98 Oximetry 01/02/23 01/02/23 18:00 19:05 Temperature 97.9 F 98.1 F Pulse Rate 68 63 Respiratory 18 18 Rate Blood Pressure 136/76 143/73 O2 Sat by Pulse 98 98 Oximetry Medical Decision Making - Medical Decision Making Was pt. sent in by a medical professional or institution ([facility], [employer], urgent care, hospital, or [facility]...) When possible be specific @ -No Did you speak to anyone other than the patient for history (EMS, parent, family, police, friend...)? What history was obtained from this source @ -Spoke with EMS and family in regards to patient's symptoms Did you review nursing and triage notes (agree or disagree)? Why? @ -I reviewed and agree with nursing and triage notes Were old charts reviewed (outside hosp., previous admission, EMS record, old EKG, old radiological studies, urgent care reports/EKG's, [facility] records)? Report findings @ -No old charts were reviewed Differential Diagnosis (chest pain, altered mental status, abdominal pain women, abdominal pain men, vaginal bleeding, weakness, fever, dyspnea, syncope, headache, dizziness, GI bleed, back pain, seizure, CVA, palpatations, mental health, musculoskeletal)? @ -Differential Seizure: Recurrent seizure disorder, febrile seizure, alcohol withdrawal, stimulants, meningitis, encephalitis, intercranial hemorrhage, intracranial tumor, stroke, eclampsia, thyrotoxicosis, hypocalcemia, hyponatremia, hypernatremia, hypomagnesemia, psychogenic, this is not meant to be an all-inclusive list. EKG interpreted by me (3pts min.). @ -Yes and demonstrates sinus rhythm with a rate of 78. ND interval 162. QRS 85. QTC of 404. No acute ST segment elevations or depressions X-rays interpreted by me (1pt min.). @ -None done CT interpreted by me (1pt min.). @ -Yes and demonstrates no acute intracranial injuries U/S interpreted by me (1pt. min.). @ -None done What testing was considered but not performed or refused? (CT, X-rays, U/S, labs)? Why? @ -None What meds were considered but not given or refused? Why? @ -None Did you discuss the management of the patient with other professionals (prof gils i.e. , PA, NUT STEAMER, lab, RT, psych nurse, geriatric social work professor, cnc mill programmer, teacher, chief resource officer, assistant case manager)? Give summary @ -Spoke with Dr. Ruiz who states that the patient should receive 1500 mg of Keppra as a loading dose with 1000 mg twice a day Was smoking cessation discussed for >3mins.? @ -No Was critical care preformed (if so, how long)? @ -No Were there social determinants of health that impacted care today? How? (Homelessness, low income, unemployed, alcoholism, drug addiction, transportation, low edu. Level, literacy, decrease access to med. care, usp, rehab)? @ -No Was there de-escalation of care discussed even if they declined (Discuss DNR or withdrawal of care, Hospice)? DNR status @ -No What co-morbidities impacted this encounter? (DM, HTN, Smoking, COPD, CAD, Cancer, CVA, ARF, Chemo, Hep., AIDS, mental health diagnosis, sleep apnea, morbid obesity)? @ -None Was patient admitted / discharged? Hospital course, mention meds given and route , prescriptions, significant lab abnormalities, going to OR and other pertinent info. @ -Upon arrival patient was placed into hallway 22. History and physical exam was performed. Laboratory studies are conducted. Patient discomfort CT of her head as she did fall and injure her head during the seizure. Patient does not have any seizure-like activity while within the emergency department here. I did discuss diagnosis, differential and treatment options. Patient and family state that due to the amount of seizures without being able to get into the neurologists makes the patient. Uncomfortable with being discharged. Called and spoke with Dr. Olivia who is agreeable to initiating Keppra. Patient is given a loading dose and will be started on 1000 mg twice daily. She'll be admitted. Spoke with Dr. Davis who agreed to admit the patient. Neurology placed on consult. Patient transferred to the floor in stable condition Undiagnosed new problem with uncertain prognosis? @ -Yes Drug Therapy requiring intensive monitoring for toxicity (Heparin, Nitro, Insulin, Cardizem)? @ -No Were any procedures done? @ -No Diagnosis/symptom? @ -New onset seizure Acute, or Chronic, or Acute on Chronic? @ -Acute Uncomplicated (without systemic symptoms) or Complicated (systemic symptoms)? @ -Complicated Side effects of treatment? @ -Sedation Exacerbation, Progression, or Severe Exacerbation? @ -No Poses a threat to life or bodily function? How? (Chest pain, [place], [place], pneumonia, PE, COPD, DKA, ARF, appy, cholecystitis, CVA, Diverticulitis, Homicidal, Suicidal, threat to staff... and all critical care pts) @ -No - Lab Data Result diagrams: 01/02/23 16:34 01/02/23 16:34 Lab Results 01/02/23 01/02/23 01/02/23 Range/Units 16:34 16:34 16:34 WBC 10.2 (3.8-10.6) k/uL RBC 4.64 (3.80-5.40) m/uL Hgb 13.8 (11.4-16.0) gm/dL Hct 41.4 (34.0-46.0) % MCV 89.2 (80.0-100.0) fL MCH 29.9 (25.0-35.0) pg MCHC 33.5 (31.0-37.0) g/dL RDW 13.3 (11.5-15.5) % Plt Count 234 (150-450) k/uL MPV 8.3 Neutrophils % 80 % Lymphocytes % 13 % Monocytes % 5 % Eosinophils % 1 % Basophils % 1 % Neutrophils # 8.2 H (1.3-7.7) k/uL Lymphocytes # 1.3 (1.0-4.8) k/uL Monocytes # 0.5 (0-1.0) k/uL Eosinophils # 0.1 (0-0.7) k/uL Basophils # 0.1 (0-0.2) k/uL Sodium 134 L (137-145) mmol/L Potassium 4.4 (3.5-5.1) mmol/L Chloride 99 (98-107) mmol/L Carbon Dioxide 29 (22-30) mmol/L Anion Gap 6 mmol/L BUN 9 (7-17) mg/dL Creatinine 0.72 (0.52-1.04) mg/dL Est GFR (CKD-EPI)AfAm >90 (>60 ml/min/1.73 sqM) Est GFR (CKD-EPI)NonAf >90 (>60 ml/min/1.73 sqM) Glucose 93 (74-99) mg/dL Plasma Lactic Acid Edison 1.2 (0.7-2.0) mmol/L Calcium 9.5 (8.4-10.2) mg/dL Magnesium 2.1 (1.6-2.3) mg/dL Total Bilirubin 0.5 (0.2-1.3) mg/dL AST 20 (14-36) U/L ALT 16 (4-34) U/L Alkaline Phosphatase 55 (38-126) U/L Total Protein 8.0 (6.3-8.2) g/dL Albumin 4.8 (3.5-5.0) g/dL Urine Color Urine Appearance (Clear) Urine pH (5.0-8.0) Ur Specific [place] (1.001-1.035) Urine Protein (Negative) Urine Glucose (UA) (Negative) Urine Ketones (Negative) Urine Blood (Negative) Urine Nitrite (Negative) Urine Bilirubin (Negative) Urine Urobilinogen (<2.0) mg/dL Ur Leukocyte Esterase (Negative) Urine RBC (0-5) /hpf Urine WBC (0-5) /hpf Ur Squamous Epith Cells (0-4) /hpf Urine Bacteria (None) /hpf Urine HCG, Qual (Not Detectd) Urine Opiates Screen (NotDetected) Ur Oxycodone Screen (NotDetected) Urine Methadone Screen (NotDetected) Ur Propoxyphene Screen (NotDetected) Ur Barbiturates Screen (NotDetected) U Tricyclic Antidepress (NotDetected) Ur Phencyclidine Scrn (NotDetected) Ur Amphetamines Screen (NotDetected) U Methamphetamines Scrn (NotDetected) U Benzodiazepines Scrn (NotDetected) Urine Cocaine Screen (NotDetected) U Marijuana (THC) Screen (NotDetected) 01/02/23 01/02/23 Range/Units 17:55 17:55 WBC (3.8-10.6) k/uL RBC (3.80-5.40) m/uL Hgb (11.4-16.0) gm/dL Hct (34.0-46.0) % MCV (80.0-100.0) fL MCH (25.0-35.0) pg MCHC (31.0-37.0) g/dL RDW (11.5-15.5) % Plt Count (150-450) k/uL MPV Neutrophils % % Lymphocytes % % Monocytes % % Eosinophils % % Basophils % % Neutrophils # (1.3-7.7) k/uL Lymphocytes # (1.0-4.8) k/uL Monocytes # (0-1.0) k/uL Eosinophils # (0-0.7) k/uL Basophils # (0-0.2) k/uL Sodium (137-145) mmol/L Potassium (3.5-5.1) mmol/L Chloride (98-107) mmol/L Carbon Dioxide (22-30) mmol/L Anion Gap mmol/L BUN (7-17) mg/dL Creatinine (0.52-1.04) mg/dL Est GFR (CKD-EPI)AfAm (>60 ml/min/1.73 sqM) Est GFR (CKD-EPI)NonAf (>60 ml/min/1.73 sqM) Glucose (74-99) mg/dL Plasma Lactic Acid Edison (0.7-2.0) mmol/L Calcium (8.4-10.2) mg/dL Magnesium (1.6-2.3) mg/dL Total Bilirubin (0.2-1.3) mg/dL AST (14-36) U/L ALT (4-34) U/L Alkaline Phosphatase (38-126) U/L Total Protein (6.3-8.2) g/dL Albumin (3.5-5.0) g/dL Urine Color Colorless Urine Appearance Clear (Clear) Urine pH 6.0 (5.0-8.0) Ur Specific [place] 1.004 (1.001-1.035) Urine Protein Negative (Negative) Urine Glucose (UA) Negative (Negative) Urine Ketones Negative (Negative) Urine Blood Trace H (Negative) Urine Nitrite Negative (Negative) Urine Bilirubin Negative (Negative) Urine Urobilinogen <2.0 (<2.0) mg/dL Ur Leukocyte Esterase Negative (Negative) Urine RBC 1 (0-5) /hpf Urine WBC 1 (0-5) /hpf Ur Squamous Epith Cells 1 (0-4) /hpf Urine Bacteria Rare H (None) /hpf Urine HCG, Qual Not Detected (Not Detectd) Urine Opiates Screen Not Detected (NotDetected) Ur Oxycodone Screen Not Detected (NotDetected) Urine Methadone Screen Not Detected (NotDetected) Ur Propoxyphene Screen Not Detected (NotDetected) Ur Barbiturates Screen Not Detected (NotDetected) U Tricyclic Antidepress Not Detected (NotDetected) Ur Phencyclidine Scrn Not Detected (NotDetected) Ur Amphetamines Screen Not Detected (NotDetected) U Methamphetamines Scrn Not Detected (NotDetected) U Benzodiazepines Scrn Not Detected (NotDetected) Urine Cocaine Screen Not Detected (NotDetected) U Marijuana (THC) Screen Detected H (NotDetected) Disposition Clinical Impression: New onset seizure Disposition: ADMITTED IP TO THIS [facility] Condition: Stable Is patient prescribed a controlled substance at d/c from ED?: No Time of Disposition: 20:00 Decision to Admit Reason: Admit from EC Decision Date: 01/02/23 Decision Time: 20:00
[2023-01-02] MEDS ORDERED: NALOXONE 0.4 MG/ML 1 ML VIAL IV PRN (20:11)
[2023-01-03 09:00] LABS: Basophils # (A) 0.03 X 10*3/uL (0.00-0.10); Basophils % (A) 0.4 %; Eosinophils # (A) 0.05 X 10*3/uL (0.04-0.35); Eosinophils % (A) 0.6 %; HCT 35.8 % (37.2-46.3); HGB 11.9 d/dL (12.0-15.0); Lymphocytes # (A) 2.75 X 10*3/uL (0.90-5.00); Lymphocytes % (A) 34.8 %; MCH 29.6 pg (27.0-32.0); MCHC 33.2 d/dL (32.0-37.0); MCV 89.1 FL (80.0-97.0); Mean Platelet Volume 11.1 FL (9.5-12.2); Monocytes # (A) 0.66 X 10*3/uL (0.20-1.00); Monocytes % (A) 8.4 %; NRBC Per 100 WBC 0 X 10*3/uL (0.00-0.01); Neutrophils # (A) 4.38 X 10*3/uL (1.80-7.70); Neutrophils % (A) 55.4 %; Platelet Count 224 X 10*3/uL (140-440); RBC 4.02 X 10*6/uL (4.10-5.20)
[2023-01-03 09:03] LABS: BUN/Creat Ratio 9.75 Ratio (12.00-20.00); Blood Urea Nitrogen 7.8 mg/dL (9.0-27.0); Calcium 8.7 mg/dL (8.7-10.3); Carbon Dioxide 24.1 mmol/L (21.6-31.8); Chloride 105 mmol/L (96-109); Glucose 87 mg/dL (70-110); Potassium 3.7 mmol/L (3.5-5.5); Sodium 140 mmol/L (135-145)
[2023-01-03] MEDS: levETIRAcetam 500 MG TAB PO SCH ×2 (09:48→17:59)
[2023-01-03] MEDS ORDERED: ENOXAPARIN 40 MG/0.4 ML SYRINGE SQ SCH (11:15)
[2023-01-03 12:11] VITALS: BP 114/70; PULSE 57; RESP 18; TEMP 98.4
--- NOTE | 2023-01-03 18:32 | EEG ---
ELECTROENCEPHALOGRAM REPORT PREAMBLE: This is a 22-year-old female with seizure disorder, came with seizure. EEG FINDINGS: This is a 21-channel digital EEG recorded with video component, utilizing 10/20 International System with referential and bipolar montages. Background consists of well-developed, moderately well-regulated, mixed frequencies of 9 to 10 Hz alpha, intermixed with some theta and occasional delta waves seen in bihemispheric region. Background is posterior dominant and seems to be reactive to eye opening and closing. There was very frequent bitemporal focal slowing in polymorphic delta range seen, left more than right during most of the study. Frequent left temporal sharp waves were seen during the study. There were some sharply-contoured waves seen in the right temporal region, but did not appear clearly epileptiform. No electrographic seizure was recorded. Different stages of sleep were not seen. Photic driving response was seen with some flash frequencies. IMPRESSION: This is an abnormal EEG due to: 1. Focal slowing in bitemporal region, left more than right, suggestive of focal cortical neuronal dysfunction. 2. Frequent left temporal sharp waves, some of which were suggestive of focal cortical irritability and tendency for seizures. 3. Background disorganization and slight slowing, suggestive of mild encephalopathy. 4. No electrographic seizure was recorded. 5. Recommend prolonged EEG for further characterization and localization of seizures. MMODL / IJN: [id number] / TREV
--- NOTE | 2023-01-03 19:21 | P.HPIM ---
History of Present Illness H&P Date: 01/03/23 Chief Complaint: Seizures This is a 21-year-old patient who follows with Dr. Alcala. Patient is accompanied by her at the bedside. Patient's was noted to have a seizure-like activity when she first became about a year ago. On the day of expected delivery should've full blown seizure activity. Blood pressure was high. Soon after delivery blood pressure came down. No further episodes. Then patient been having gradually more progressive seizure symptoms. Patient often forgetful. Appears distant. Smoking of the lips. Some testosterone like child. Since his became more pronounced in last 1 month and in the last 1 week every day. Patient had about 6 episodes yesterday. Incontinent. Does not remember things. Tongue biting. Patient started on IV Keppra. Patient denies any seizures as a child. No head injury. Does about 3-4 marijuana joints a day. Vaping. Was doing 4-5 bottles of Mountain Dew daily up to last year. Review of systems: GEN.: None EYES: None HEENT: None NECK: None RESPIRATORY: None CARDIOVASCULAR: None GASTROINTESTINAL: None GENITOURINARY: None MUSCULOSKELETAL: None LYMPHATICS: None HEMATOLOGICAL: None PSYCHIATRY: None NEUROLOGICAL: As above Past medical history to include: Unremarkable Social history: Has a 1-year-old child. . Homemaker. Does 3-4 marijuana joints a day. This daily vaping for last 2 years. Denies any other recreational drugs. No alcohol. Physical examination: VITAL SIGNS: 97.1, 64, 17, 123.70, 98% room air GENERAL: BMI 31.6, laying bit of a comfortable. EYES: Pupils equal. Conjunctiva normal. HEENT: External appearance of nose and ears normal, oral cavity grossly normal. NECK: JVD not raised; masses not palpable. HEART: First and second heart sounds are normal; no edema. LUNGS: Respiratory rate normal; clear to auscultation. ABDOMEN: Soft, nontender, liver spleen not palpable, no masses palpable. PSYCH: Alert and oriented x3; mood and affect normal. MUSCULOSKELETAL:No Clubbing/cyanosis;muscles-grossly intact NEUROLOGICAL: Cranial nerves grossly intact; no facial asymmetry, power and sensation grossly intact. LYMPHATICS: No lymph nodes palpable in the axilla and neck INVESTIGATIONS, reviewed in the clinical context: White count 7.9 hemoglobin 11.9 platelets 224 potassium 3.7 creatinine 0.8 Urine drug screen positive for marijuana Had cervical spine CT: Unremarkable EKG tracing personally reviewed by me-normal sinus rhythm Assessment and plan: -Focal to generalized tonic-clonic seizure. Symptoms started during her . And have gradually progressed. Patient has been an outpatient appointment to see Dr. Bro pending the same. Seizure precautions. EEG. Neurology consulted. -Recreational marijuana use. Advised against the same -Nicotine dependence in the form of vaping. Not for the same. -Obesity BMI 31.6 Weight loss measures Care was discussed with patient and at the bedside. Past Medical History Past Medical History: Seizure Disorder History of Any Multi-Drug Resistant Organisms: None Reported Past Surgical History: Section, Tonsillectomy Past Anesthesia/Blood Transfusion Reactions: Unable to Obtain Past Psychological History: Anxiety, Depression Smoking Status: Vaper Past Alcohol Use History: None Reported Past Drug Use History: Marijuana Medications and Allergies Home Medications Medication Instructions Recorded Confirmed Type levETIRAcetam [Keppra] 1,000 mg PO BID #60 tab 01/03/23 Rx Allergies Allergy/AdvReac Type Severity Reaction Status Date / Time nickel Allergy Rash/Hives Verified 01/02/23 17:20 Physical Exam Vitals: Vital Signs Temp Pulse Pulse Resp BP BP Pulse Ox 01/03/23 07:35 97.1 F L 64 17 123/70 98 01/03/23 02:27 97.5 F L 65 16 101/54 98 01/02/23 22:01 98.6 F 65 16 127/74 97 01/02/23 19:05 98.1 F 63 18 143/73 98 01/02/23 18:00 97.9 F 68 18 136/76 98 01/02/23 17:00 98.1 F 60 18 132/74 98 01/02/23 15:31 97.9 F 62 18 146/76 98 01/02/23 15:26 98.2 F 73 16 120/71 100 Intake and Output 01/02/23 01/03/23 01/03/23 22:59 06:59 14:59 Other: # Voids 1 Weight 99.79 kg Results CBC & Chem 7: 01/03/23 04:08 01/03/23 04:08 Labs: Abnormal Lab Results - Last 24 Hours (Table) 01/02/23 01/02/23 01/02/23 Range/Units 16:34 16:34 17:55 RBC (4.10-5.20) X 10*6/uL Hgb (12.0-15.0) d/dL Hct (37.2-46.3) % Neutrophils # 8.2 H (1.3-7.7) k/uL Sodium 134 L (137-145) mmol/L BUN (9.0-27.0) mg/dL BUN/Creatinine Ratio (12.00-20.00) Ratio Urine Blood Trace H (Negative) Urine Bacteria Rare H (None) /hpf U Marijuana (THC) Screen Detected H (NotDetected) 01/03/23 01/03/23 Range/Units 04:08 04:08 RBC 4.02 L (4.10-5.20) X 10*6/uL Hgb 11.9 L (12.0-15.0) d/dL Hct 35.8 L (37.2-46.3) % Neutrophils # (1.3-7.7) k/uL Sodium (137-145) mmol/L BUN 7.8 L (9.0-27.0) mg/dL BUN/Creatinine Ratio 9.75 L (12.00-20.00) Ratio Urine Blood (Negative) Urine Bacteria (None) /hpf U Marijuana (THC) Screen (NotDetected) Thrombosis Risk Factor Assmnt - Choose All That Apply Any of the Below Risk Factors Present?: No Other congenital or acquired thrombophilia - If yes, enter type in comment: No
--- NOTE | 2023-01-03 19:23 | P.DS ---
Providers Date of admission: 01/02/23 20:11 Expected date of discharge: 01/03/23 Attending physician: Thomas Davis Consults: 01/02/23 20:11 Consult Physician Urgent Consulting Provider: Felix Olivia Consult Reason/Comments: new onset seizure Do you want consulting provider notified?: Already Contacted Primary care physician: [facility] Course: Chief Complaint: Seizures This is a 21-year-old patient who follows with Dr. Alcala. Patient is accompanied by her at the bedside. Patient's was noted to have a seizure-like activity when she first became about a year ago. On the day of expected delivery should've full blown seizure activity. Blood pressure was high. Soon after delivery blood pressure came down. No further episodes. Then patient been having gradually more progressive seizure symptoms. Patient often forgetful. Appears distant. Smoking of the lips. Some testosterone like child. Since his became more pronounced in last 1 month and in the last 1 week every day. Patient had about 6 episodes yesterday. Incontinent. Does not remember things. Tongue biting. Patient started on IV Keppra. Patient denies any seizures as a child. No head injury. Does about 3-4 marijuana joints a day. Vaping. Was doing 4-5 bottles of Mountain Dew daily up to last year. She later today underwent EGD. That showed focal slowing in the bitemporal region left more than the right suggestive of focal cortical neuronal dysfunction. She was seen by neurology Dr. Ruiz. Cleared for discharge on Keppra. Patient will keep her appointment with her neurologist which she is due to see. Past medical history to include: Unremarkable Social history: Has a 1-year-old child. . Homemaker. Does 3-4 marijuana joints a day. This daily vaping for last 2 years. Denies any other recreational drugs. No alcohol. Physical examination: VITAL SIGNS: 97.1, 64, 17, 123.70, 98% room air GENERAL: BMI 31.6, laying bit of a comfortable. EYES: Pupils equal. Conjunctiva normal. HEENT: External appearance of nose and ears normal, oral cavity grossly normal. NECK: JVD not raised; masses not palpable. HEART: First and second heart sounds are normal; no edema. LUNGS: Respiratory rate normal; clear to auscultation. ABDOMEN: Soft, nontender, liver spleen not palpable, no masses palpable. PSYCH: Alert and oriented x3; mood and affect normal. MUSCULOSKELETAL:No Clubbing/cyanosis;muscles-grossly intact NEUROLOGICAL: Cranial nerves grossly intact; no facial asymmetry, power and sensation grossly intact. LYMPHATICS: No lymph nodes palpable in the axilla and neck INVESTIGATIONS, reviewed in the clinical context: EEG: Focal slowing and bitemporal region left more than the right suggestive of focal cortical neuronal dysfunction. Frequent left temporal sharp waves some of which is suggestive of focal cortical irritability and tendency for seizures. White count 7.9 hemoglobin 11.9 platelets 224 potassium 3.7 creatinine 0.8 Urine drug screen positive for marijuana Had cervical spine CT: Unremarkable EKG tracing personally reviewed by me-normal sinus rhythm Assessment and plan: -Focal to generalized tonic-clonic seizure. Symptoms started during her . And have gradually progressed. Patient has been an outpatient appointment to see Dr. Bro pending the same. Keppra thousand milligrams twice a day. Follow-up with neurology. No driving as per [place] law. Seen by Dr. Mcconnell. -Recreational marijuana use. Advised against the same -Nicotine dependence in the form of vaping. Advised against. -Obesity BMI 31.6 Weight loss measures Disposition: Home Plan - Discharge Summary Discharge Rx Participant: No New Discharge Prescriptions: New levETIRAcetam [Keppra] 1,000 mg PO BID #60 tab Discharge Medication List levETIRAcetam [Keppra] 1,000 mg PO BID #60 tab 01/03/23 [Rx] Follow up Appointment(s)/Referral(s): Ramez Alcala MD [Primary Care Provider] - 1-2 days (call for follow up appt) Mera Hollingsworth MD [Medical Doctor] - 1 Week (keep already scheduled appt) Patient Instructions/Handouts: Seizure/Epilepsy Discharge Instructions & Follow-Up, Levetiracetam (By mouth) Discharge Disposition: HOME SELF-CARE
== END 2023-01-03 18:26 | disposition home or self-care (01) ==
LOC: EC 15:21 → 5NMEDONC 20:11
PROVIDERS: ADMIT Hospitalist; ATTEND Hospitalist
DX: R56.9 Unspecified convulsions (principal); F17.290 Nicotine dependence, other tobacco product, uncomplicated; Z79.899 Other long term (current) drug therapy; E66.9 Obesity, unspecified; Z68.31 Body mass index [BMI] 31.0-31.9, adult; Z91.048 Other nonmedicinal substance allergy status
CPT/HCPCS: 96361; 96374; 99285; 36415; 95816; 93005; 80053; 80048; 83605; 83735; 85025 ×2; 81001; 81025; 80306; 72125; 70450; G0378 ×2; J1953

== ENCOUNTER 2023-11-22 09:32 | Inpatient (IN) | payer BC, OTHER ==
[2023-11-22] MEDS ORDERED: miSOPROStoL 200 MCG TAB PO PRN (09:55)
[2023-11-22] MEDS ORDERED: METHYLERGONOVINE 0.2 MG/ML 1 ML AMP IM PRN (09:55)
[2023-11-22] MEDS ORDERED: OXYTOCIN 10 UNIT/ML 1 ML VIAL IM PRN (09:55)
[2023-11-22] MEDS ORDERED: TRANEXAMIC 1,000 MG/100ML-NACL 1,000 MG in EMPTY BAG 1 BAG IV PRN (09:55)
[2023-11-22] MEDS ORDERED: CARBOPROST TROMETHAMINE 250 MCG/ML 1 ML AMP IM PRN (09:55)
[2023-11-22] MEDS: LACTATED RINGERS 1,000 ML IV SCH ×2 (10:15→14:44)
[2023-11-22 10:38] LABS: Basophils # (A) 0.1 k/uL (0-0.2); Basophils % (A) 0 %; Eosinophils # (A) 0.2 k/uL (0-0.7); Eosinophils % (A) 2 %; HCT 33.9 % (34.0-46.0); HGB 10.9 gm/dL (11.4-16.0); Lymphocytes # (A) 2.8 k/uL (1.0-4.8); Lymphocytes % (A) 22 %; MCH 29.6 pg (25.0-35.0); MCHC 32.3 g/dL (31.0-37.0); MCV 91.8 fL (80.0-100.0); Monocytes # (A) 0.8 k/uL (0-1.0); Monocytes % (A) 6 %; Neutrophils # (A) 8.3 k/uL (1.3-7.7); Neutrophils % (A) 67 %; Platelet Count 301 k/uL (150-450); RBC 3.69 m/uL (3.80-5.40); WBC 12.5 k/uL (3.8-10.6)
[2023-11-22] MEDS: CITRIC ACID-SODIUM CITRATE 15 ML CUP PO ONE (11:30)
--- NOTE | 2023-11-22 12:13 | P.HPOB ---
History of Present Illness H&P Date: 11/22/23 Chief Complaint: Scheduled repeat This is a 23 year old 2 para 1001 person with an estimated due date of 11/28/2023 based on LMP consistent with first trimester ultrasound. They have a history of a previous low transverse section in 2022 secondary to nonreassuring heart tones and maternal seizure. The patient's past medical history is significant for seizure disorder and may have been stable on Keppra throughout the with no recurrent or active seizure activity. Findings on 20 week ultrasound also showed a circumvallate placenta. All testing and serial growth ultrasounds have been reassuring. Obstetric history 39 week primary low transverse section, 6 lbs. 5 oz., maternal seizure, possible eclampsia in 2022 laboratory data: Blood type AB+, antibody screen negative, rubella immune, VDRL nonreactive, hep Jessica surface antigen negative, HIV negative, hepatitis C negative, gonorrhea and clinic cultures negative, glucose tolerance testing within normal limits, group B strep negative. Past medical history maternal seizure disorder, history of factor V Leiden G mutation, anxiety and depression Past surgical history primary low transverse section, tonsillectomy Review of Systems All systems: negative Past Medical History Past Medical History: Seizure Disorder Additional Past Medical History / Comment(s): epilepsy and focal seizures History of Any Multi-Drug Resistant Organisms: None Reported Past Surgical History: Section, Tonsillectomy Past Anesthesia/Blood Transfusion Reactions: Unable to Obtain Past Psychological History: Anxiety, Depression Smoking Status: Vaper Past Alcohol Use History: None Reported Past Drug Use History: Marijuana - Past Family History Father Family Medical History: Vascular Disorder Additional Family Medical History / Comment(s): clotting disorder, vericose veins Mother Additional Family Medical History / Comment(s): factor V lieden Medications and Allergies Home Medications Medication Instructions Recorded Confirmed Type levETIRAcetam [Keppra] 1,000 mg PO BID #60 tab 01/03/23 11/22/23 Rx Vit No.179/Iron/Folic 1 each PO DAILY 11/22/23 11/22/23 History [ Tablet] Allergies Allergy/AdvReac Type Severity Reaction Status Date / Time nickel Allergy Rash/Hives Verified 11/22/23 09:55 Exam Vital Signs Temp Pulse Resp BP 11/22/23 10:10 99.0 F 107 H 18 140/77 Intake and Output 11/21/23 11/22/23 11/22/23 22:59 06:59 14:59 Other: Weight 107.048 kg This is a pleasant, visibly gravid individual in no apparent distress. HEENT exam is unremarkable. Breathing is unlabored and heart is a regular rate and rhythm. Abdomen is gravid with size equal to estimated date, 1+ bilateral lower extremity edema. Pelvic exam is deferred. heart tones are currently category 1 Results Result Diagrams: 11/22/23 10:20 Abnormal Lab Results - Last 24 Hours (Table) 11/22/23 Range/Units 10:20 WBC 12.5 H (3.8-10.6) k/uL RBC 3.69 L (3.80-5.40) m/uL Hgb 10.9 L (11.4-16.0) gm/dL Hct 33.9 L (34.0-46.0) % Neutrophils # 8.3 H (1.3-7.7) k/uL Assessment and Plan (1) Seizure disorder Current Visit: Yes Status: Acute Code(s): G40.909 - EPILEPSY, UNSP, NOT INTRACTABLE, WITHOUT STATUS EPILEPTICUS SNOMED Code(s): 455060585 (2) Circumvallate placenta Current Visit: Yes Status: Acute Code(s): O43.119 - CIRCUMVALLATE PLACENTA, UNSPECIFIED TRIMESTER SNOMED Code(s): 2175281 (3) 39 weeks gestation of Current Visit: No Status: Acute Code(s): Z3A.39 - 39 WEEKS GESTATION OF SNOMED Code(s): 59656159 (4) History of Current Visit: Yes Status: Acute Code(s): Z98.891 - HISTORY OF UTERINE SCAR FROM PREVIOUS SURGERY SNOMED Code(s): 876490122 Plan: 23-year-old 2 para 1001 individual admitted at 39 weeks gestation for planned repeat low transverse section. Risks benefits and alternatives to the procedure have been reviewed with the patient and her partner in the office setting. They have just time declined trial of labor. Risks of the procedure have been reviewed and included bleeding, infection, transfusion, damage to bowel, bladder, ureters and/or other maternal or structures. Patient's menses risks and agrees to proceed. status is currently reassuring by external monitoring.
[2023-11-22] MEDS ORDERED: MORPHINE SULFATE (PF) 0.3 MG/0.3 ML SYR ONE (12:18)
[2023-11-22] MEDS ORDERED: OXYTOCIN 30 UNITS/500 ML NS BAG IV ONE (12:18)
[2023-11-22] MEDS ORDERED: KETOROLAC 15 MG/ML 1 ML VIAL ONE (12:18)
[2023-11-22 12:30] LABS: Amphetamine Screen,Urine Not Detected (NotDetected); Barbiturate Screen,Urine Not Detected (NotDetected); Benzodiazepines Screen,Urine Not Detected (NotDetected); Cocaine Screen,Urine Not Detected (NotDetected); Methadone Screen, Urine Not Detected (NotDetected); Opiate Screen,Urine Not Detected (NotDetected); Oxycodone Screen, Urine Not Detected (NotDetected); Phencyclidine Screen,Urine Not Detected (NotDetected); Tricyclic Antidepressant,Urine Not Detected (NotDetected); Urn Cannabinoid Scrn Detected (NotDetected)
[2023-11-22] MEDS ORDERED: diphenhydrAMINE 25 MG CAP PO PRN ×2 (13:02→13:03)
[2023-11-22] MEDS ORDERED: diphenhydrAMINE 50 MG CAP PO PRN ×2 (13:02→13:03)
[2023-11-22] MEDS ORDERED: ZOLPIDEM 5 MG TAB PO PRN (13:02)
[2023-11-22] MEDS ORDERED: NALOXONE 0.4 MG/ML 1 ML VIAL IV PRN (13:02)
[2023-11-22] MEDS ORDERED: diphenhydrAMINE 50 MG/ML 1 ML VIAL IVP PRN ×4 (13:02→13:03)
--- NOTE | 2023-11-22 13:02 | P.OP ---
Date of Procedure: 11/22/23 Preoperative Diagnosis: Uterine at 39 weeks gestation History of previous low transverse section Maternal seizure disorder Postoperative Diagnosis: Same Procedure(s) Performed: Repeat low transverse section Anesthesia: spinal Surgeon: Suma Cheung Lan Specialist #1: Elizabeth Vallejo Estimated Blood Loss (ml): 501 IV fluids (ml): 1,000 Urine output (ml): 100 Pathology: other (Placenta) Condition: stable Disposition: floor Indications for Procedure: Previous low transverse section, declines trial of labor Operative Findings: Female infant in the occiput posterior position with Apgars of 9 at 1 minute and 9 at 5 minutes weighing 7 lbs. 8 oz., 3410 g, intact, three-vessel cord placenta. Normal-appearing bilateral fallopian tubes and ovaries. Description of Procedure: After the patient was met preoperatively and all questions were answered, she was taken to the operating room where spinal anesthetic was administered without incident. She was then positioned, prepped and draped in the dorsal supine position with a leftward tilt. Prabhakar catheter was placed. After anesthetic was confirmed adequate, a low transverse skin incision was made following the pre- existing scar. This was carried down to the underlying fascia both sharply and with the electrocautery. The fascia was then incised in the midline and extended bilaterally with the Dockery scissors. The superior aspect of the fascial incision was elevated and the underlying rectus muscles dissected off sharply and with the electrocautery. The inferior aspect of the fascial incision was also elevated and the underlying rectus muscles dissected off sharply. The muscles were adherent in the midline. These were bluntly and the peritoneum was tented up with hemostats. The peritoneum was entered sharply with the Metzenbaum scissors. The peritoneal incision was extended inferiorly and superiorly with good visualization of the bladder. The bladder blade was placed. The vesicouterine peritoneum was identified, tented up and entered sharply, the bladder flap was created both sharply and digitally. A low transverse uterine incision was then made sharply and carried down to the underlying amniotic membranes. Membranes were ruptured and clear fluid was noted. The uterine incision was extended bilaterally bluntly. The infant's head was delivered from the incision without difficulty. The nose and mouth were bulb suctioned. The rest of the infant was delivered onto the field without difficulty. And cut and the infant was taken to the warmer. An intact, three-vessel cord placenta was then manually removed and the uterus was exteriorized. The uterus was cleared of all clot and debris. The uterine incision was delineated with Clements clamps. The uterine incision was then closed in a running locked fashion with 0 Vicryl suture. Additional [id number] sutures were placed where necessary along the incision for hemostasis. The uterus was then returned to the abdomen and the gutters were cleared of all clot and debris. The uterine incision was reinspected and Bovie electrocautery was utilized were necessary for hemostasis. The fascial edges, peritoneal edges and rectus muscles were inspected and Bovie electrocautery utilized were necessary for hemostasis. The fascia was then closed in a running fashion with 0 Vicryl suture. The subcuticular tissue was copiously suction irrigated and Bovie electrocautery utilized were necessary for hemostasis. 3-0 Vicryl suture was utilized to reapproximate the subcuticular tissue. The skin was then closed in a subcutaneous fashion with 4-0 Vicryl suture. All counts reported to me as correct by the operating room staff at the end of the procedure. The patient received antibiotics preoperatively and Pitocin following cord clamp. Mother and infant were both transported from the room in stable condition.
[2023-11-22] MEDS ORDERED: HYDROmorphone 2 MG TAB PO PRN (13:03)
[2023-11-22] MEDS ORDERED: SIMETHICONE 80 MG CHEWABLE PO PRN (13:03)
[2023-11-22] MEDS ORDERED: HYDROmorphone 1 MG/ML 1 ML SYRINGE IVP PRN (13:03)
[2023-11-22] MEDS ORDERED: OXYTOCIN 30 UNITS/500 ML NS 30 UNIT in SALINE 1 500ML.BAG IV SCH (13:15)
[2023-11-22] MEDS: ACETAMINOPHEN TAB 500 MG TAB PO SCH (15:41)
[2023-11-22] MEDS: METOCLOPRAMIDE 5 MG/ML 2 ML VIAL IVP PRN (17:59)
[2023-11-22] MEDS: IBUPROFEN IV 800 MG in SODIUM CHLORIDE 0.9% 250 ML IV PRN (20:18)
[2023-11-22] MEDS: ONDANSETRON 4 MG/2 ML VIAL IVP PRN (20:19)
[2023-11-22] MEDS: SENNOSIDES-DOCUSATE SODIUM 1 EACH TAB PO SCH (20:33)
[2023-11-22] MEDS: levETIRAcetam 500 MG TAB PO SCH (21:37)
[2023-11-23] MEDS: IBUPROFEN 600 MG TAB PO SCH (01:49)
--- NOTE | 2023-11-23 06:31 | P.PN ---
Progress Note - Text 11/23/23 618am 23-year-old female status post with spinal Duramorph. Patient seen and evaluated for postop pain control, she has a VAS of 1 with no complaints of nausea vomiting or pruritus.
[2023-11-23 08:34] LABS: Basophils % (A) 0 %; Eosinophils # (A) 0.1 k/uL (0-0.7); Eosinophils % (A) 1 %; HCT 27.8 % (34.0-46.0); HGB 9.2 gm/dL (11.4-16.0); Lymphocytes # (A) 2.4 k/uL (1.0-4.8); Lymphocytes % (A) 19 %; MCH 30.4 pg (25.0-35.0); MCHC 33.1 g/dL (31.0-37.0); Monocytes % (A) 8 %; Neutrophils # (A) 9.2 k/uL (1.3-7.7); Neutrophils % (A) 71 %; Platelet Count 227 k/uL (150-450); RBC 3.02 m/uL (3.80-5.40)
--- NOTE | 2023-11-23 09:40 | P.PNOBGPC ---
Subjective - Subjective Principal diagnosis: post op day one Interval history: Nausea and vomitting over night, now improved. ABle to void with cather out Patient reports: Reports appetite normal, Reports pain well controlled, Reports ambulating normally : doing well (in nursery with possible withdrawl) Objective - Vital Signs Latest vital signs: Vital Signs Temp Pulse Resp BP Pulse Ox 11/23/23 08:00 98 F 78 14 102/68 11/22/23 23:45 97.8 F 65 17 131/77 99 11/22/23 20:15 98.0 F 72 16 121/81 96 11/22/23 15:09 97.6 F 68 16 109/53 96 11/22/23 14:54 67 17 106/52 97 11/22/23 14:39 64 17 108/55 11/22/23 14:24 66 16 105/57 11/22/23 14:06 96 16 115/56 97 11/22/23 13:54 67 17 111/55 96 11/22/23 13:39 83 17 107/55 95 11/22/23 13:24 96 17 112/56 97 11/22/23 13:09 96.3 F L 76 17 111/52 98 11/22/23 10:10 99.0 F 107 H 18 140/77 Intake and Output 11/22/23 11/23/23 11/23/23 22:59 06:59 14:59 Output Total 513 340 150 Balance -513 -340 -150 Output: Urine 200 340 150 Uretheral (Prabhakar) 100 Output, Quantitative 313 Blood Loss - Exam Lungs: bilateral: normal Extremities: Present: normal Abdomen: Present: normal appearance, soft. Absent: tenderness Incision: Present: normal, dry, intact. Absent: erythematous Uterus: Present: normal, firm. Absent: tenderness - Labs Labs: Abnormal Lab Results - Last 24 Hours (Table) 11/22/23 11/22/23 11/23/23 Range/Units 10:20 11:30 06:58 WBC 12.5 H 13.0 H (3.8-10.6) k/uL RBC 3.69 L 3.02 L (3.80-5.40) m/uL Hgb 10.9 L 9.2 L D (11.4-16.0) gm/dL Hct 33.9 L 27.8 L (34.0-46.0) % Neutrophils # 8.3 H 9.2 H (1.3-7.7) k/uL U Marijuana (THC) Screen Detected H (NotDetected) Assessment and Plan (1) Seizure disorder Current Visit: Yes Status: Acute Code(s): G40.909 - EPILEPSY, UNSP, NOT INTRACTABLE, WITHOUT STATUS EPILEPTICUS SNOMED Code(s): 663780701 (2) Circumvallate placenta Current Visit: Yes Status: Acute Code(s): O43.119 - CIRCUMVALLATE PLACENTA, UNSPECIFIED TRIMESTER SNOMED Code(s): 9755977 (3) 39 weeks gestation of Current Visit: No Status: Acute Code(s): Z3A.39 - 39 WEEKS GESTATION OF SNOMED Code(s): 36341438 (4) History of Current Visit: Yes Status: Acute Code(s): Z98.891 - HISTORY OF UTERINE SCAR FROM PREVIOUS SURGERY SNOMED Code(s): 068716166 Plan: POD 1 s/p rpt LTCS. N/V resolved overnight. Pain well controlled. Plan advance diet and ambulate. Keppra restarted. in SCN.
[2023-11-24] MEDS ORDERED: oxyCODONE-APAP 5-325MG 1 EACH TAB PO PRN (09:14)
--- NOTE | 2023-11-24 09:51 | P.PNOBGPC ---
Subjective - Subjective Principal diagnosis: s/p Interval history: The patient is doing well this morning and had no acute events overnight. The patient has suboptimally controlled pain this morning as she requested to be undisturbed overnight and did not receive her scheduled Tylenol and Motrin. She reports minimal lochia, passing flatus, voiding without difficulty, ambulating, and eating/drinking without nausea or vomiting. She is breast feeding her without difficulty. She denies chest pain, shortness of breathing, fevers, or chills overnight. She denies pain or swelling in the legs. Patient reports: Reports appetite normal, Reports voiding normally, Reports pain poorly controlled, Reports ambulating normally [place]: doing well, other (in nursery for keppra withdrawal) Objective - Vital Signs Latest vital signs: Vital Signs Temp Pulse Resp BP Pulse Ox 11/24/23 08:50 97.9 F 86 16 138/79 98 11/24/23 00:41 98.1 F 78 16 119/61 96 11/23/23 16:00 97.8 F 73 14 128/70 11/23/23 13:00 98.1 F 87 15 130/74 98 - Exam Extremities: Present: normal Abdomen: Present: normal appearance, soft Incision: Present: normal, dry, intact Uterus: Present: normal, firm Assessment and Plan Assessment: 23 year old POD#2 s/p repeat Plan: 1. Postoperative. Patient meeting all post-operative milestones appropriately. 2. Viable female . In the nursery, being scored for Keppra withdrawal. Dispo: Patient would like to continue admission until infant is discharge. Continue to monitor.
[2023-11-24] MEDS: FERROUS SULFATE 325 MG TAB PO SCH (12:13)
[2023-11-25 02:56] VITALS: RESP 16
--- NOTE | 2023-11-25 10:50 | P.PNOBGPC ---
Subjective - Subjective Principal diagnosis: s/p repeat Interval history: The patient is doing well this morning and had no acute events overnight. She has no complaints this morning. She reports minimal lochia, passing flatus, voiding without difficulty, ambulating, and eating/drinking without nausea or vomiting. She is formula feeding her without difficulty. She denies chest pain, shortness of breathing, fevers, or chills overnight. She denies pain or swelling in the legs. Patient reports: Reports appetite normal, Reports voiding normally, Reports pain well controlled, Reports ambulating normally : doing well, other (in nursery) Objective - Vital Signs Latest vital signs: Vital Signs Temp Pulse Resp BP Pulse Ox 11/25/23 00:00 98.1 F 74 16 122/76 97 11/24/23 16:00 99.0 F 78 18 124/82 98 - Exam Extremities: Present: normal Abdomen: Present: normal appearance, soft Incision: Present: normal, dry, intact Uterus: Present: normal, firm Assessment and Plan Assessment: 23 year old POD#3 s/p repeat Plan: 1. Postoperative. Patient meeting all post-operative milestones appropriately. 2. Viable female . In the nursery. Dispo: Patient would like to continue admission until infant is discharge. Continue to monitor.
[2023-11-25 11:20] VITALS: BP 135/75; PULSE 89; TEMP 98.5
--- NOTE | 2023-11-26 04:18 | P.DS ---
Providers Date of admission: 11/22/23 09:32 Expected date of discharge: 11/25/23 Attending physician: Suma Cheung Primary care physician: Stated None Hospital Course: Kristine Good is a 23 year old now POD#3 s/p repeat . The patient is doing well this morning and had no acute events overnight. She has no complaints this morning. She reports minimal lochia, passing flatus, voiding without difficulty, ambulating, and eating/drinking without nausea or vomiting. Infant doing well in the nursery. She denies chest pain, shortness of breathing, fevers, or chills overnight. She denies pain or swelling in the legs. Pos toperative restrictions are reviewed with the patient including pelvic rest for 6 weeks, no lifting heavier than 15 pounds for 6 weeks. The patient is encouraged to call the office if she experiences any heavy bleeding, foul- smelling discharge, breast complaints, or any if she has any other concerns. She will follow up in the office with Dr. Cheung in 2 weeks for postoperative exam. She will go home with a 3-day prescription of oxycodoe and plans to use Motrin and Tylenol OTC as needed. All questions are answered. Assessment: 23 year old now POD#3 s/p repeat Patient Condition at Discharge: Good Plan - Discharge Summary Discharge Rx Participant: No New Discharge Prescriptions: New oxyCODONE HCL [Roxicodone] 5 mg PO Q6HR PRN 3 Days #12 tab PRN Reason: Breakthrough Pain No Action levETIRAcetam [Keppra] 1,000 mg PO BID #60 tab Vit No.179/Iron/Folic [ Tablet] 1 each PO DAILY Discharge Medication List levETIRAcetam [Keppra] 1,000 mg PO BID #60 tab 01/03/23 [Rx] Vit No.179/Iron/Folic [ Tablet] 1 each PO DAILY 11/22/23 [History] oxyCODONE HCL [Roxicodone] 5 mg PO Q6HR PRN 3 Days #12 tab 11/24/23 [Rx] Follow up Appointment(s)/Referral(s): Suma Cheung MD [STAFF PHYSICIAN] - 01/03/24 1:45 pm Patient Instructions/Handouts: (DC) Discharge Disposition: HOME SELF-CARE
== END 2023-11-25 14:34 | disposition home or self-care (01) | DRG 787 ==
LOC: 4FBP 09:32
PROVIDERS: ADMIT Obstetrics & Gynecology; ATTEND Obstetrics & Gynecology
PROC: 10D00Z1 Extraction of Products of Conception, Low, Open Approach (ICD-10-PCS; principal; 2023-11-22 12:00)
DX: O34.211 Maternal care for low transverse scar from previous cesarean delivery (principal); D68.51 Activated protein C resistance; O99.354 Diseases of the nervous system complicating childbirth; O99.12 Other diseases of the blood and blood-forming organs and certain disorders involving the immune mechanism complicating childbirth; G40.109 Localization-related (focal) (partial) symptomatic epilepsy and epileptic syndromes with simple partial seizures, not intractable, without status epilepticus; O99.334 Smoking (tobacco) complicating childbirth; F17.290 Nicotine dependence, other tobacco product, uncomplicated; O43.113 Circumvallate placenta, third trimester; O99.344 Other mental disorders complicating childbirth; F41.9 Anxiety disorder, unspecified; F32.A Depression, unspecified; Z79.899 Other long term (current) drug therapy; Z3A.39 39 weeks gestation of pregnancy; Z37.0 Single live birth
CPT/HCPCS: 80306; 85025; 86850; 86900; 86901; 88307

== ENCOUNTER 2024-12-10 18:39 | Emergency (ER) | payer BC, OTHER ==
[2024-12-10 18:48] VITALS: TEMP 98
[2024-12-10 19:02] LABS: Basophils # (A) 0.04 10*3/uL (0.00-0.10); Basophils % (A) 0.5 %; Eosinophils # (A) 0.06 10*3/uL (0.04-0.35); Eosinophils % (A) 0.7 %; HCT 39.8 % (37.2-46.3); HGB 13.7 g/dL (12.0-15.0); Lymphocytes # (A) 1.29 10*3/uL (0.90-5.00); Lymphocytes % (A) 15.6 %; MCH 30.5 pg (27.0-32.0); MCHC 34.4 g/dL (32.0-37.0); MCV 88.6 fL (80.0-97.0); Monocytes # (A) 0.64 10*3/uL (0.20-1.00); Monocytes % (A) 7.7 %; Neutrophils # (A) 6.22 10*3/uL (1.80-7.70); Neutrophils % (A) 75.3 %; Platelet Count 259 10*3/uL (140-440); RBC 4.49 10*6/uL (4.10-5.20); RDW 11.9 % (11.5-14.5); WBC 8.27 10*3/uL (4.50-10.00)
[2024-12-10 19:31] LABS: ALT 13 U/L (4-34); AST 21 U/L (14-36); African American GFR (CKD) >90 (>60 ml/min/1.73 sqM); Albumin 4.7 g/dL (3.5-5.0); Alkaline Phosphatase 54 U/L (38-126); Anion Gap 11 mmol/L; Blood Urea Nitrogen 12 mg/dL (7-17); Calcium 9.7 mg/dL (8.4-10.2); Carbon Dioxide 22 mmol/L (22-30); Chloride 103 mmol/L (98-107); Glucose 106 mg/dL (74-99); Magnesium 1.7 mg/dL (1.6-2.3); Non-African American GFR(CKD) >90 (>60 ml/min/1.73 sqM); Potassium 4.3 mmol/L (3.5-5.1); Sodium 136 mmol/L (137-145); Total Protein 7.4 g/dL (6.3-8.2)
[2024-12-10] MEDS: IBUPROFEN 400 MG TAB PO STA (19:50)
[2024-12-10] MEDS: ACETAMINOPHEN TAB 325 MG TAB PO STA (19:50)
[2024-12-10 19:53] VITALS: RESP 16
--- NOTE | 2024-12-10 19:54 | ED ---
Seizure HPI - General Chief Complaint: Seizure Stated Complaint: Seizure Time Seen by Provider: 12/10/24 18:48 Source: patient, EMS Mode of arrival: ambulatory Limitations: no limitations - History of Present Illness Initial Comments: This patient is a 24-year-old woman who has history of seizures. The patient reportedly has tonic-clonic seizures that are infrequent, the last one was approximately 2 years ago. She also has absence seizures and occasional focal seizures. The patient had recent medication change. She was taken off of Keppra as she has not had tonic-clonic seizure in 2 years, and she was changed to Lamictal as the other seizures are more frequent. The patient did have generalized tonic-clonic seizure tonight. The patient was outdoors when the seizure came on. The patient's mother went inside and got her medication and administered intranasal diazepam. The seizure lasted 1 to 2 minutes. The patient states she does have a little bit of headache, which is normal following her seizure, and she did bite the right side of her tongue but she otherwise feels her normal self. She denies other trauma. The patient does have already established appointment with her neurologist tomorrow morning. MD Complaint: seizure Onset/Timin -: minutes(s) Description of Episode: loss of consciousness, tonic-clonic movement Duration of Episode: 2 -: minutes(s) Witnessed: yes - by bystander Seizure History: known seizure disorder, compliant with medication Place: street/outdoors Possible Precipitating Event: none Associated Symptoms: denies other symptoms Treatments Prior to Arrival: benzodiazepines - Related Data Home Medications Medication Instructions Recorded Confirmed Vit No.179/Iron/Folic 1 each PO DAILY 11/22/23 11/22/23 [ Tablet] Previous Rx's Medication Instructions Recorded levETIRAcetam [Keppra] 1,000 mg PO BID #60 tab 01/03/23 oxyCODONE HCL [Roxicodone] 5 mg PO Q6HR PRN 3 Days #12 tab 11/24/23 Allergies Allergy/AdvReac Type Severity Reaction Status Date / Time nickel Allergy Rash/Hives Verified 12/10/24 18:48 Review of Systems ROS Statement: Those systems with pertinent positive or pertinent negative responses have been documented in the HPI. ROS Other: All systems not noted in ROS Statement are negative. Past Medical History Past Medical History: Seizure Disorder Additional Past Medical History / Comment(s): epilepsy and focal seizures History of Any Multi-Drug Resistant Organisms: None Reported Past Surgical History: Section, Tonsillectomy Past Anesthesia/Blood Transfusion Reactions: Unable to Obtain Past Psychological History: Anxiety, Depression Smoking Status: Vaper Past Alcohol Use History: None Reported Past Drug Use History: Marijuana - Past Family History Father Family Medical History: Vascular Disorder Additional Family Medical History / Comment(s): clotting disorder, vericose veins Mother Additional Family Medical History / Comment(s): factor V lieden General Exam Limitations: no limitations Course Vital Signs 12/10/24 12/10/24 18:44 19:53 Temperature 98.0 F Pulse Rate 85 92 Respiratory 17 16 Rate Blood Pressure 123/66 116/67 O2 Sat by Pulse 100 98 Oximetry Medical Decision Making - Lab Data Result diagrams: 12/10/24 18:57 12/10/24 18:57 Lab Results 12/10/24 12/10/24 12/10/24 Range/Units 18:57 18:57 18:57 WBC 8.27 (4.50-10.00) 10*3/uL RBC 4.49 (4.10-5.20) 10*6/uL Hgb 13.7 (12.0-15.0) g/dL Hct 39.8 (37.2-46.3) % MCV 88.6 (80.0-97.0) fL MCH 30.5 (27.0-32.0) pg MCHC 34.4 (32.0-37.0) g/dL Plt Count 259 (140-440) 10*3/uL MPV 10.3 (9.5-12.2) fL Immature Gran % (Auto) 0.2 % Neutrophils % 75.3 % Lymphocytes % 15.6 % Monocytes % 7.7 % Eosinophils % 0.7 % Basophils % 0.5 % Immature Gran # 0.02 (0.00-0.04) 10*3/uL Neutrophils # 6.22 (1.80-7.70) 10*3/uL Lymphocytes # 1.29 (0.90-5.00) 10*3/uL Monocytes # 0.64 (0.20-1.00) 10*3/uL Eosinophils # 0.06 (0.04-0.35) 10*3/uL Basophils # 0.04 (0.00-0.10) 10*3/uL Sodium 136 L (137-145) mmol/L Potassium 4.3 (3.5-5.1) mmol/L Chloride 103 (98-107) mmol/L Carbon Dioxide 22 (22-30) mmol/L Anion Gap 11 mmol/L BUN 12 (7-17) mg/dL Creatinine 0.64 (0.52-1.04) mg/dL Est GFR (CKD-EPI)AfAm >90 (>60 ml/min/1.73 sqM) Est GFR (CKD-EPI)NonAf >90 (>60 ml/min/1.73 sqM) Glucose 106 H (74-99) mg/dL Plasma Lactic Acid [place] 1.8 (0.7-2.0) mmol/L Calcium 9.7 (8.4-10.2) mg/dL Magnesium 1.7 (1.6-2.3) mg/dL Total Bilirubin 0.6 (0.2-1.3) mg/dL AST 21 (14-36) U/L ALT 13 (4-34) U/L Alkaline Phosphatase 54 (38-126) U/L Total Protein 7.4 (6.3-8.2) g/dL Albumin 4.7 (3.5-5.0) g/dL Disposition Clinical Impression: Generalized seizure Disposition: HOME SELF-CARE Condition: Good Instructions (If sedation given, give patient instructions): Seizure/Epilepsy Discharge Instructions & Follow-Up Is patient prescribed a controlled substance at d/c from ED?: No Referrals: None,Stated [Primary Care Provider] - 1-2 days Mera Hollingsworth MD [Medical Doctor] - 1-2 days
[2024-12-10] MEDS: ONDANSETRON 4 MG/2 ML VIAL IVP STA (20:12)
[2024-12-10 20:19] VITALS: BP 108/56; PULSE 72
== END 2024-12-10 20:19 | disposition home or self-care (01) ==
LOC: EC 18:39
DX: G40.409 Other generalized epilepsy and epileptic syndromes, not intractable, without status epilepticus (principal); F17.290 Nicotine dependence, other tobacco product, uncomplicated; Z88.8 Allergy status to other drugs, medicaments and biological substances
CPT/HCPCS: 36415; 93005; 80053; 83605; 83735; 85025; 99284; 96374; J2405